=== PATIENT | male | born 1990 | race African-American/Black ===

== ENCOUNTER 2019-12-19 11:51 | Inpatient (IN) | payer OTHER ==
--- NOTE | 2019-12-19 12:01 | BHS.RME ---
Substance Use & Tx History - Substance Use History Alcohol Substance amount: 1 liter vodka Frequency of use: Daily Substance route: Oral Date of Last Use: 12/18/19 Methamphetamine Substance amount: 1 bag Frequency of use: Less than 3 times per week Date of Last Use: 12/18/19 Cocaine- Powder Substance amount: 5 bags Frequency of use: Daily Substance route: Inhalation (ex: sniffing or snorting) Date of Last Use: 12/18/19 Heroin Substance amount: more than 12 bags Frequency of use: Daily Substance route: Inhalation (ex: sniffing or snorting), Injection (ex: intravenous or skin popping) Date of Last Use: 12/18/19 Physical/Psych/Mental Status - Behavior General Behavior: Increased activity (restlessness, agitation) Eye Contact: Normal - Cooperativeness Cooperativeness: Cooperative - Thinking Thought Processes: Tight, Logical, Goal Directed - Physical Health Problems Is patient presently having any pain?: No Does patient presently have any injuries (include location): No Does patient currently have a fever: No Is patient : No COWS - Scale Resting Pulse: 0= [place] 80 or Below Sweatin= Chills/Flushing Restless Observation: 0= Sits Still Pupil Size: 0= Normal to Room Light Bone or Joint Aches: 2= Severe Diffuse Aches Runny Nose/ Eye Tearin= Nasal Congestion GI Upset > 30mins: 1= Stomach Cramp Tremor Observation: 1= Tremor [place], Not Seen Yawning Observation: 0= None Anxiety or Irritability: 1=Feels Anxious/Irritable Goose Flesh Skin: 3=Piloerection COWS Score: 10 CIWA Nausea/Vomitin-Int. Nausea w/Dry Heave Muscle Tremors: 4-Moderate,w/Arms Extend Anxiety: 3 Agitation: 3 Paroxysmal Sweats: 2 Orientation: 1-Uncertain about Date Tacttile Disturbances: 0-None Auditory Disturbances: 0-None Visual Disturbances: 0-None Headache: 0-None Present CIWA-Ar Total Score: 17
--- NOTE | 2019-12-19 12:38 | HP ---
COWS - Scale Resting Pulse: 0= [place] 80 or Below Sweatin= Chills/Flushing Restless Observation: 0= Sits Still Pupil Size: 0= Normal to Room Light Bone or Joint Aches: 2= Severe Diffuse Aches Runny Nose/ Eye Tearin= Nasal Congestion GI Upset > 30mins: 1= Stomach Cramp Tremor Observation: 1= Tremor [place], Not Seen Yawning Observation: 0= None Anxiety or Irritability: 1=Feels Anxious/Irritable Goose Flesh Skin: 3=Piloerection COWS Score: 10 CIWA Score Nausea/Vomitin-Int. Nausea w/Dry Heave Muscle Tremors: 4-Moderate,w/Arms Extend Anxiety: 3 Agitation: 3 Paroxysmal Sweats: 2 Orientation: 1-Uncertain about Date Tacttile Disturbances: 0-None Auditory Disturbances: 0-None Visual Disturbances: 0-None Headache: 0-None Present CIWA-Ar Total Score: 17 - Admission Criteria OASAS Guidelines: Admission for Medically Managed Detox: Requires at least one of the followin. CIWA greater than 12 2. Seizures within the past 24 hours 3. Delirium tremens within the past 24 hours 4. Hallucinations within the past 24 hours 5. Acute intervention needed for co occurring medical disorder 6. Acute intervention needed for co occurring psychiatric disorder 7. Severe withdrawal that cannot be handled at a lower level of care (continued vomiting, continued diarrhea, abnormal vital signs) requiring intravenous medication and/or fluids 8. Admitting History and Physical - Admission Chief Complaint: Mr. Quinonez is a 29 yo man who presents to [facility] stating "I need help". History of Present Illness: Mr. Quinonez is a 29 yo man who presents to [facility] stating "I need help". He was at [facility] yesterday for alcohol and opioid intoxication, he left without being treated other than IV fluids. PMH: Psych: legal: none PSH: right arm abscess SOC: homeless. streets - Substance Use History Alcohol Substance amount: 1 liter vodka Frequency of use: Daily Substance route: Oral Date of Last Use: 12/18/19 Began age 15 y No seiuze. Has had a blackout. Admits to an eye agriculture instructor Methamphetamine Substance amount: 1 bag Frequency of use: Less than 3 times per week Date of Last Use: 12/18/19 First use age 28 y Cocaine- Powder Substance amount: 5 bags Frequency of use: Daily Substance route: Inhalation (ex: sniffing or snorting) Date of Last Use: 12/18/19 First use age 21 y Heroin Substance amount: more than 12 bags Frequency of use: Daily Substance route: Inhalation (ex: sniffing or snorting), Injection (ex: intravenous or skin popping) Date of Last Use: 12/18/19 First use age 21 y Yes OD, >20 times. Last OD was last week. No Narcan at home No Methadone or Suboxone Patient Name: Rj Quinonez Date: 1990 Address: [address] [place] [id number] Sex: Male Rx Written Rx Dispensed Drug Quantity Days Supply Prescriber Name Payment Method Dispenser 09/04/2019 09/05/2019 chlordiazepoxide 25 mg capsule 8 2 Papi Batista [facility] 05/31/2019 06/01/2019 chlordiazepoxide 25 mg capsule 8 2 Papi Batista Medicaid [facility] History Source: Patient Limitations to Obtaining History: No Limitations Admission ROS [facility] Allergies/Adverse Reactions: Allergies Allergy/AdvReac Type Severity Reaction Status Date / Time No Known Allergies Allergy Verified 12/19/19 12:42 Exam Limitations: No Limitations - Ebola screening Have you traveled outside of the country in the last 21 days: No Have you been sick,other than usual withdrawal symptoms: No Do you have a fever: No - Review of Systems Constitutional: No Symptoms Reported EENT: reports: Nose Congestion Respiratory: reports: No Symptoms reported Cardiac: reports: No Symptoms Reported GI: reports: No Symptoms Reported : reports: Other (hesitancy) Musculoskeletal: reports: Back Pain, Muscle Pain Integumentary: reports: No Symptoms Reported Neuro: reports: No Symptoms reported Endocrine: reports: No Symptoms Reported Hematology: reports: Anemia Psychiatric: reports: Anxious Patient History - Smoking Cessation Smoking history: Current every day smoker Have you smoked in the past 12 months: Yes Aproximately how many cigarettes per day: 10 Hx Chewing Tobacco Use: No Initiated information on smoking cessation: Yes 'Breaking Loose' booklet given: 12/19/19 Admission Physical Exam [facility] - Physical General Appearance: Yes: No Apparent Distress, Nourished, Other (sleepy) HEENTM: Yes: EOMI, Hearing grossly Normal, Normocephalic, Normal Voice Respiratory: Yes: Lungs Clear, Normal Breath Sounds Neck: Yes: Within Normal Limits, Supple Breast: Yes: Breast Exam Deferred Cardiology: Yes: Regular Rhythm, Regular Rate Abdominal: Yes: Normal Bowel Sounds, Non Tender, Flat, Soft Genitourinary: Yes: Other (deferred) Back: Yes: Normal Inspection Musculoskeletal: Yes: Gait Steady Extremities: Yes: Normal Inspection, Non-Tender Neurological: Yes: Alert, Normal Response Integumentary: Yes: Track Knapp (no sign of infection) - Diagnostic (1) Alcohol dependence with withdrawal, uncomplicated Current Visit: Yes Status: Acute (2) Opioid withdrawal Current Visit: Yes Status: Acute (3) Cocaine dependence Current Visit: Yes Status: Acute (4) Nicotine dependence Current Visit: Yes Status: Acute (5) Methamphetamine abuse Current Visit: Yes Status: Acute (6) Homeless Current Visit: Yes Status: Acute Cleared for Admission [facility] - Detox or Rehab [facility] Level of Care: Medically Managed Detox Regimen/Protocol: Methadone/Librium Inpatient Rehab Admission - Rehab Decision to Admit Inpatient rehab admission?: No
[2019-12-19] MEDS ORDERED: MAGNESIUM HYDROX 2400MG/30ML ORAL SUSPENSION 30 ML CUP PO PRN (12:42)
[2019-12-19] MEDS ORDERED: cloNIDine HCL 0.1 MG TABLET PO PRN (12:42)
[2019-12-19] MEDS ORDERED: IBUPROFEN 400 MG TABLET (FP) PO PRN (12:42)
[2019-12-19] MEDS ORDERED: BISMUTH SUBSALICYLATE 524 MG/30 ML UD PO PRN (12:42)
[2019-12-19] MEDS ORDERED: MENTHOL/PHENOL 1 EACH UD MM PRN (12:42)
[2019-12-19] MEDS ORDERED: ACETAMINOPHEN 325 MG TABLET (FP) PO PRN ×2 (12:42)
[2019-12-19] MEDS ORDERED: MAGNESIUM CITRATE 300 ML BOTTLE PO PRN (12:42)
[2019-12-19] MEDS ORDERED: chlordiazePOXIDE HCL 25 MG CAPSULE PO PRN (12:42)
[2019-12-19] MEDS ORDERED: NICOTINE POLACRILEX 2 MG GUM BUC PRN (12:42)
[2019-12-19] MEDS ORDERED: METHOCARBAMOL 500 MG TABLET PO PRN (12:42)
[2019-12-19] MEDS ORDERED: ONDANSETRON *ODT* 4 MG TABLET SL PRN (12:42)
[2019-12-19] MEDS ORDERED: MAG HYDROX/AL HYDROX/SIMETH 30 ML UNIT-DOSE CUP PO PRN (12:42)
[2019-12-19] MEDS ORDERED: METHADONE HCL 10 MG TABLET (FOR DETOX USE ONLY) PO ONE (12:42)
[2019-12-19 13:31] VITALS: BMI 32.3
--- NOTE | 2019-12-19 14:39 | EKG ---
Test Reason : Blood Pressure : / mmHG Vent. Rate : 059 BPM Atrial Rate : 059 BPM P-R Int : 120 ms QRS Dur : 104 ms QT Int : 410 ms P-R-T Axes : 047 -57 008 degrees QTc Int : 405 ms SINUS BRADYCARDIA LEFT ANTERIOR FASCICULAR BLOCK ABNORMAL ECG NO PREVIOUS ECGS AVAILABLE Confirmed by MD Keith, Mayo ([id number]) on 12/19/2019 2:39:25 PM Referred By: Confirmed By:Mayo Parker MD
[2019-12-19] MEDS: PRENATAL VITAMINS W/ FOLIC ACID TABLET (FP) PO SCH (15:00)
[2019-12-19] MEDS: NICOTINE 14 MG/24 HOURS TOPICAL PATCH TD SCH (15:00)
[2019-12-19] MEDS: hydrOXYzine PAMOATE 25 MG CAPSULE (FP) PO SCH ×3 (15:01→22:24)
[2019-12-19 16:54] LABS: HEMATOCRIT 35.5 % (35.4-49); HEMOGLOBIN 11.8 GM/dL (11.7-16.9); MCH 30.7 pg (25.7-33.7); MCHC 33.2 g/dl (32.0-35.9); MEAN CELL VOLUME 92.4 fl (80-96); MEAN PLT VOLUME 8.1 fl (7.5-11.1); PLATELET COUNT 260 K/MM3 (134-434); RBC 3.85 M/mm3 (4.00-5.60); RDW 14.5 % (11.9-15.9); WHITE BLOOD COUNT 7.2 K/mm3 (4.0-10.0)
[2019-12-19 17:12] LABS: ALBUMIN 3.4 g/dl (3.4-5.0); BILIRUBIN,TOTAL 0.4 mg/dL (0.2-1); BLOOD UREA NITROGEN 10.8 mg/dL (7-18); CALCIUM 8.8 mg/dL (8.5-10.1); CREATININE 1.1 mg/dL (0.55-1.3); POTASSIUM 4.1 mmol/L (3.5-5.1)
[2019-12-19] MEDS: chlordiazePOXIDE HCL 25 MG CAPSULE PO SCH ×2 (18:00→22:03)
[2019-12-19] MEDS: THIAMINE HCL 100 MG TABLET (FP) PO SCH (22:03)
[2019-12-19] MEDS: MELATONIN 5 MG TABLETS PO SCH (22:03)
[2019-12-20] MEDS: chlordiazePOXIDE HCL 25 MG CAPSULE PO SCH ×4 (06:10→21:59)
[2019-12-20] MEDS: hydrOXYzine PAMOATE 25 MG CAPSULE (FP) PO SCH (06:10)
[2019-12-20] MEDS ORDERED: METHADONE HCL 5 MG TABLET (FOR DETOX USE ONLY) ONE (09:19)
[2019-12-20] MEDS ORDERED: METHADONE HCL 10 MG TABLET (FOR DETOX USE ONLY) ONE (09:19)
[2019-12-20] MEDS ORDERED: hydrOXYzine PAMOATE 25 MG CAPSULE (FP) PO PRN (09:37)
[2019-12-20] MEDS ORDERED: METHADONE (DETOX) 20 MG, METHADONE (DETOX) 5 MG PO ONE (10:00)
--- NOTE | 2019-12-20 11:03 | PN ---
[facility] CIWA - CIWA Score Nausea/Vomitin-No Nausea/No Vomiting Muscle Tremors: 2 Anxiety: 2 Agitation: 2 Paroxysmal Sweats: 2 Orientation: 0-Oriented Tacttile Disturbances: 0-None Auditory Disturbances: 0-None Visual Disturbances: 0-None Headache: 0-None Present CIWA-Ar Total Score: 8 [facility] COWS - Scale Resting Pulse: 0= [place] 80 or Below Sweatin= Chills/Flushing Restless Observation: 1= Difficult to Sit Still Pupil Size: 0= Normal to Room Light Bone or Joint Aches: 2= Severe Diffuse Aches Runny Nose/ Eye Tearin= Nasal Congestion GI Upset > 30mins: 0= None Tremor Observation of Outstretched Hands: 1= Tremor [place], Not Seen Yawning Observation: 1= 1-2x During Session Anxiety or Irritability: 2=Irritable/Anxious Goose Flesh Skin: 0=Smooth Skin COWS Score: 9 S Progress Note (SOAP) Subjective: sweats irritable agitation body aches interrupted sleep tired Objective: 12/20/19 11:02 Vital Signs Temperature 98.2 F 12/20/19 05:25 Pulse Rate 51 L 12/20/19 05:25 Respiratory Rate 18 12/20/19 05:25 Blood Pressure 103/55 L 12/20/19 05:25 O2 Sat by Pulse Oximetry (%) 99 12/20/19 05:25 Laboratory Tests 12/19/19 12/19/19 12/19/19 13:10 13:10 13:10 WBC 7.2 RBC 3.85 L Hgb 11.8 Hct 35.5 MCV 92.4 MCH 30.7 MCHC 33.2 RDW 14.5 Plt Count 260 MPV 8.1 Sodium 139 Potassium 4.1 Chloride 104 Carbon Dioxide 32 Anion Gap 4 L BUN 10.8 Creatinine 1.1 Est GFR (CKD-EPI)AfAm 104.59 Est GFR (CKD-EPI)NonAf 90.24 Random Glucose 76 Calcium 8.8 Total Bilirubin 0.4 AST 13 L ALT 20 Alkaline Phosphatase 65 Total Protein 7.0 Albumin 3.4 Syphilis Serology Non-reactive HIV Ag/Ab Combo Qual 12/19/19 13:50 WBC RBC Hgb Hct MCV MCH MCHC RDW Plt Count MPV Sodium Potassium Chloride Carbon Dioxide Anion Gap BUN Creatinine Est GFR (CKD-EPI)AfAm Est GFR (CKD-EPI)NonAf Random Glucose Calcium Total Bilirubin AST ALT Alkaline Phosphatase Total Protein Albumin Syphilis Serology HIV Ag/Ab Combo Qual Negative labs noted aaox3 lying in bed no acute distress Assessment: 12/20/19 11:02 withdrawals sx Plan: continue detox increase fluids
[2019-12-20] MEDS: PRENATAL VITAMINS W/ FOLIC ACID TABLET (FP) PO SCH (11:16)
[2019-12-20] MEDS: NICOTINE 14 MG/24 HOURS TOPICAL PATCH TD SCH (11:20)
[2019-12-20] MEDS: THIAMINE HCL 100 MG TABLET (FP) PO SCH (21:59)
[2019-12-20] MEDS: MELATONIN 5 MG TABLETS PO SCH (22:01)
[2019-12-21] MEDS: chlordiazePOXIDE HCL 25 MG CAPSULE PO SCH ×4 (05:35→22:03)
--- NOTE | 2019-12-21 09:51 | PN ---
S CIWA - CIWA Score Nausea/Vomitin-No Nausea/No Vomiting Muscle Tremors: 2 Anxiety: 2 Agitation: 2 Paroxysmal Sweats: 1-Minimal Palms Moist Orientation: 0-Oriented Tacttile Disturbances: 0-None Auditory Disturbances: 0-None Visual Disturbances: 0-None Headache: 0-None Present CIWA-Ar Total Score: 7 [facility] COWS - Scale Resting Pulse: 0= [place] 80 or Below Sweatin= Chills/Flushing Restless Observation: 1= Difficult to Sit Still Pupil Size: 0= Normal to Room Light Bone or Joint Aches: 2= Severe Diffuse Aches Runny Nose/ Eye Tearin= None GI Upset > 30mins: 0= None Tremor Observation of Outstretched Hands: 1= Tremor [place], Not Seen Yawning Observation: 1= 1-2x During Session Anxiety or Irritability: 2=Irritable/Anxious Goose Flesh Skin: 0=Smooth Skin COWS Score: 8 S Progress Note (SOAP) Subjective: sweats shakes agitation interrupted sleep body aches Objective: 12/21/19 09:50 Vital Signs Temperature 97.7 F 12/21/19 05:27 Pulse Rate 64 12/21/19 05:27 Respiratory Rate 16 12/21/19 05:27 Blood Pressure 105/66 12/21/19 05:27 O2 Sat by Pulse Oximetry (%) 99 12/21/19 05:27 Laboratory Tests 12/19/19 12/19/19 12/19/19 13:10 13:10 13:10 WBC 7.2 RBC 3.85 L Hgb 11.8 Hct 35.5 MCV 92.4 MCH 30.7 MCHC 33.2 RDW 14.5 Plt Count 260 MPV 8.1 Sodium 139 Potassium 4.1 Chloride 104 Carbon Dioxide 32 Anion Gap 4 L BUN 10.8 Creatinine 1.1 Est GFR (CKD-EPI)AfAm 104.59 Est GFR (CKD-EPI)NonAf 90.24 Random Glucose 76 Calcium 8.8 Total Bilirubin 0.4 AST 13 L ALT 20 Alkaline Phosphatase 65 Total Protein 7.0 Albumin 3.4 Syphilis Serology Non-reactive COVID-19 (KARIE) HIV Ag/Ab Combo Qual 12/19/19 12/19/19 13:50 13:50 WBC RBC Hgb Hct MCV MCH MCHC RDW Plt Count MPV Sodium Potassium Chloride Carbon Dioxide Anion Gap BUN Creatinine Est GFR (CKD-EPI)AfAm Est GFR (CKD-EPI)NonAf Random Glucose Calcium Total Bilirubin AST ALT Alkaline Phosphatase Total Protein Albumin Syphilis Serology COVID-19 (KARIE) Not detected HIV Ag/Ab Combo Qual Negative labs noted aaox3 ambulating no acute distress Assessment: 12/21/19 09:51 withdrawals Plan: continue detox increase fluids
[2019-12-21] MEDS ORDERED: METHADONE HCL 10 MG TABLET (FOR DETOX USE ONLY) PO ONE (10:00)
[2019-12-21] MEDS: NICOTINE 14 MG/24 HOURS TOPICAL PATCH TD SCH (10:26)
[2019-12-21] MEDS: PRENATAL VITAMINS W/ FOLIC ACID TABLET (FP) PO SCH (10:26)
[2019-12-21] MEDS: MELATONIN 5 MG TABLETS PO SCH (22:03)
[2019-12-21] MEDS: THIAMINE HCL 100 MG TABLET (FP) PO SCH (22:03)
[2019-12-22] MEDS ORDERED: chlordiazePOXIDE HCL 10 MG CAPSULE PO PRN
[2019-12-22] MEDS: chlordiazePOXIDE HCL 10 MG CAPSULE PO SCH ×4 (05:30→22:24)
--- NOTE | 2019-12-22 07:37 | PN ---
S Progress Note Note: R UPPER ARM SURGICAL WOUND 2/2 TO INFECTED ABCESS 2 MONTHS AGO. R UPPER ARM NOTED WITH APPROX 15 CM X 3CM LINEAR WOUND WITH PINK GRANULATING TISSUE. DRIED/ CRUSTED SANGUINOUS DC NOTED TO BORDERS. NO S/SX OF INFECTION NOTED. A- R ARM SURGICAL WOUND P- BACITRACIN DAILY AFTER NS WASH AND COVER WITH CLEAN DRY DRESSING.
[2019-12-22] MEDS ORDERED: METHADONE HCL 5 MG TABLET (FOR DETOX USE ONLY) ONE (08:35)
[2019-12-22] MEDS ORDERED: METHADONE HCL 10 MG TABLET (FOR DETOX USE ONLY) ONE (08:35)
[2019-12-22] MEDS ORDERED: BACITRACIN 15 GM TUBE TOPICAL OINTMENT TP SCH (10:00)
[2019-12-22] MEDS ORDERED: METHADONE (DETOX) 10 MG, METHADONE (DETOX) 5 MG PO ONE (10:00)
[2019-12-22] MEDS: NICOTINE 14 MG/24 HOURS TOPICAL PATCH TD SCH (10:31)
[2019-12-22] MEDS: PRENATAL VITAMINS W/ FOLIC ACID TABLET (FP) PO SCH (10:31)
[2019-12-22] MEDS: BACITRACIN 0.9 GM PACKET TP SCH (11:28)
--- NOTE | 2019-12-22 13:40 | PN ---
[facility] CIWA - CIWA Score Nausea/Vomitin-No Nausea/No Vomiting Muscle Tremors: 2 Anxiety: 2 Agitation: 1-Slight > Activity Paroxysmal Sweats: 2 Orientation: 0-Oriented Tacttile Disturbances: 0-None Auditory Disturbances: 0-None Visual Disturbances: 0-None Headache: 0-None Present CIWA-Ar Total Score: 7 [facility] Progress Note (SOAP) Subjective: Complaints of sweats, anxiety, tremors and light sensitivity. Objective: 12/22/19 13:38 Vital Signs 12/22/19 12/22/19 08:40 12:39 Temperature 97.3 F L 97.8 F Pulse Rate 55 L 71 Respiratory 17 18 Rate Blood Pressure 111/55 L 131/52 L O2 Sat by Pulse 99 Oximetry (%) Laboratory Last Values WBC 7.2 K/mm3 (4.0-10.0) 12/19/19 13:10 RBC 3.85 M/mm3 (4.00-5.60) L 12/19/19 13:10 Hgb 11.8 GM/dL (11.7-16.9) 12/19/19 13:10 Hct 35.5 % (35.4-49) 12/19/19 13:10 MCV 92.4 fl (80-96) 12/19/19 13:10 MCH 30.7 pg (25.7-33.7) 12/19/19 13:10 MCHC 33.2 g/dl (32.0-35.9) 12/19/19 13:10 RDW 14.5 % (11.9-15.9) 12/19/19 13:10 Plt Count 260 K/MM3 (134-434) 12/19/19 13:10 MPV 8.1 fl (7.5-11.1) 12/19/19 13:10 Sodium 139 mmol/L (136-145) 12/19/19 13:10 Potassium 4.1 mmol/L (3.5-5.1) 12/19/19 13:10 Chloride 104 mmol/L (98-107) 12/19/19 13:10 Carbon Dioxide 32 mmol/L (21-32) 12/19/19 13:10 Anion Gap 4 MMOL/L (8-16) L 12/19/19 13:10 BUN 10.8 mg/dL (7-18) 12/19/19 13:10 Creatinine 1.1 mg/dL (0.55-1.3) 12/19/19 13:10 Est GFR (CKD-EPI)AfAm 104.59 12/19/19 13:10 Est GFR (CKD-EPI)NonAf 90.24 12/19/19 13:10 Random Glucose 76 mg/dL (74-106) 12/19/19 13:10 Calcium 8.8 mg/dL (8.5-10.1) 12/19/19 13:10 Total Bilirubin 0.4 mg/dL (0.2-1) 12/19/19 13:10 AST 13 U/L (15-37) L 12/19/19 13:10 ALT 20 U/L (13-61) 12/19/19 13:10 Alkaline Phosphatase 65 U/L (45-117) 12/19/19 13:10 Total Protein 7.0 g/dl (6.4-8.2) 12/19/19 13:10 Albumin 3.4 g/dl (3.4-5.0) 12/19/19 13:10 Syphilis Serology Non-reactive (NONREACTIVE) 12/19/19 13:10 COVID-19 (KARIE) Not detected (Not Detected) 12/19/19 13:50 HIV Ag/Ab Combo Qual Negative (NEGATIVE) 12/19/19 13:50 Labs noted. Assessment: 12/22/19 13:39 Alert and oriented x3, in no acute respiratory distress. Full ROM, ambulatory on unit. Withdrawal symptoms. Plan: Continue detox protocol.
[2019-12-22] MEDS ORDERED: MASKS NR ONE (21:58)
[2019-12-22] MEDS: MELATONIN 5 MG TABLETS PO SCH (22:24)
[2019-12-22] MEDS: THIAMINE HCL 100 MG TABLET (FP) PO SCH (22:24)
[2019-12-23] MEDS: chlordiazePOXIDE HCL 10 MG CAPSULE PO SCH ×2 (05:35→17:57)
[2019-12-23] MEDS ORDERED: METHADONE HCL 10 MG TABLET (FOR DETOX USE ONLY) PO ONE (10:00)
[2019-12-23] MEDS: NICOTINE 14 MG/24 HOURS TOPICAL PATCH TD SCH (10:18)
[2019-12-23] MEDS: PRENATAL VITAMINS W/ FOLIC ACID TABLET (FP) PO SCH (10:18)
[2019-12-23] MEDS: BACITRACIN 0.9 GM PACKET TP SCH (11:11)
--- NOTE | 2019-12-23 15:39 | PN ---
[facility] CIWA - CIWA Score Nausea/Vomitin-No Nausea/No Vomiting Muscle Tremors: None Anxiety: 2 Agitation: 2 Paroxysmal Sweats: No Perspiration Orientation: 0-Oriented Tacttile Disturbances: 0-None Auditory Disturbances: 0-None Visual Disturbances: 0-None Headache: 0-None Present CIWA-Ar Total Score: 4 [facility] COWS - Scale Resting Pulse: 0= [place] 80 or Below Sweatin= No chills or Flushing Restless Observation: 0= Sits Still Pupil Size: 0= Normal to Room Light Bone or Joint Aches: 0= None Runny Nose/ Eye Tearin= None GI Upset > 30mins: 0= None Tremor Observation of Outstretched Hands: 0= None Yawning Observation: 0= None Anxiety or Irritability: 1=Feels Anxious/Irritable Goose Flesh Skin: 0=Smooth Skin COWS Score: 1 [facility] Progress Note (SOAP) Subjective: Feels weak, can't think straight, feels confused since admission. Patient seen taking his meds at nursing station in [facility], ambulating without any difficulties and speaking with staff appropriately. Objective: 12/23/19 15:38 Last Vital Signs Temp Pulse Resp BP Pulse Ox 98.0 F 65 19 123/60 99 12/23/19 12:42 12/23/19 12:42 12/23/19 12:42 12/23/19 12:42 12/23/19 12:42 Laboratory Tests 12/19/19 12/19/19 12/19/19 13:10 13:10 13:10 WBC 7.2 RBC 3.85 L Hgb 11.8 Hct 35.5 MCV 92.4 MCH 30.7 MCHC 33.2 RDW 14.5 Plt Count 260 MPV 8.1 Sodium 139 Potassium 4.1 Chloride 104 Carbon Dioxide 32 Anion Gap 4 L BUN 10.8 Creatinine 1.1 Est GFR (CKD-EPI)AfAm 104.59 Est GFR (CKD-EPI)NonAf 90.24 Random Glucose 76 Calcium 8.8 Total Bilirubin 0.4 AST 13 L ALT 20 Alkaline Phosphatase 65 Total Protein 7.0 Albumin 3.4 Syphilis Serology Non-reactive COVID-19 (KARIE) HIV Ag/Ab Combo Qual 12/19/19 12/19/19 13:50 13:50 WBC RBC Hgb Hct MCV MCH MCHC RDW Plt Count MPV Sodium Potassium Chloride Carbon Dioxide Anion Gap BUN Creatinine Est GFR (CKD-EPI)AfAm Est GFR (CKD-EPI)NonAf Random Glucose Calcium Total Bilirubin AST ALT Alkaline Phosphatase Total Protein Albumin Syphilis Serology COVID-19 (KARIE) Not detected HIV Ag/Ab Combo Qual Negative Labs reviewed Assessment: 12/23/19 15:38 Withdrawal sxs Plan: Continue detox Encouraged PO water intake Patient scheduled for discharge tomorrow
[2019-12-23] MEDS: THIAMINE HCL 100 MG TABLET (FP) PO SCH (22:16)
[2019-12-23] MEDS: MELATONIN 5 MG TABLETS PO SCH (22:17)
[2019-12-24] MEDS ORDERED: chlordiazePOXIDE HCL 10 MG CAPSULE PO ONE (05:00)
[2019-12-24 05:51] VITALS: BP 93/47; PULSE 63; TEMP 97.8
[2019-12-24] MEDS ORDERED: METHADONE HCL 5 MG TABLET (FOR DETOX USE ONLY) PO ONE (06:00)
--- NOTE | 2019-12-24 08:45 | DS ---
[facility] Detox Discharge Summary Admission Date: 12/19/19 Discharge Date: 12/24/19 - History Present History: Alcohol Dependence, Cocaine Dependence, Opioid Dependence - Physical Exam Results Vital Signs: Vital Signs Temperature 97.8 F 12/24/19 05:50 Pulse Rate 63 12/24/19 05:50 Respiratory Rate 18 12/24/19 05:50 Blood Pressure 93/47 L 12/24/19 05:50 O2 Sat by Pulse Oximetry (%) 100 12/24/19 05:50 Pertinent Admission Physical Exam Findings: Vital Signs Temperature 97.8 F 12/24/19 05:50 Pulse Rate 63 12/24/19 05:50 Respiratory Rate 18 12/24/19 05:50 Blood Pressure 93/47 L 12/24/19 05:50 O2 Sat by Pulse Oximetry (%) 100 12/24/19 05:50 Laboratory Tests 12/19/19 12/19/19 12/19/19 13:10 13:10 13:10 WBC 7.2 RBC 3.85 L Hgb 11.8 Hct 35.5 MCV 92.4 MCH 30.7 MCHC 33.2 RDW 14.5 Plt Count 260 MPV 8.1 Sodium 139 Potassium 4.1 Chloride 104 Carbon Dioxide 32 Anion Gap 4 L BUN 10.8 Creatinine 1.1 Est GFR (CKD-EPI)AfAm 104.59 Est GFR (CKD-EPI)NonAf 90.24 Random Glucose 76 Calcium 8.8 Total Bilirubin 0.4 AST 13 L ALT 20 Alkaline Phosphatase 65 Total Protein 7.0 Albumin 3.4 Syphilis Serology Non-reactive COVID-19 (KARIE) HIV Ag/Ab Combo Qual 12/19/19 12/19/19 13:50 13:50 WBC RBC Hgb Hct MCV MCH MCHC RDW Plt Count MPV Sodium Potassium Chloride Carbon Dioxide Anion Gap BUN Creatinine Est GFR (CKD-EPI)AfAm Est GFR (CKD-EPI)NonAf Random Glucose Calcium Total Bilirubin AST ALT Alkaline Phosphatase Total Protein Albumin Syphilis Serology COVID-19 (KARIE) Not detected HIV Ag/Ab Combo Qual Negative labs noted aaox3 ambulating no acute distress lungs CTA - Treatment Hospital Course: Detox Protocol Followed, Detoxed Safely, Responded well, Discharged Condition Good, Rehab Referral Accepted - Medication Discharge Medications: Ambulatory Orders NK [No Known Home Medication] 12/19/19 - Diagnosis (1) Alcohol dependence with withdrawal, uncomplicated Current Visit: Yes Status: Chronic (2) Cocaine dependence Current Visit: Yes Status: Chronic Qualifiers: Substance use status: uncomplicated Qualified Code(s): F14.20 - Cocaine dependence, uncomplicated (3) Homeless Current Visit: Yes Status: Acute (4) Methamphetamine abuse Current Visit: Yes Status: Acute (5) Nicotine dependence Current Visit: Yes Status: Chronic Qualifiers: Nicotine product type: cigarettes Substance use status: uncomplicated Qualified Code(s): F17.210 - Nicotine dependence, cigarettes, uncomplicated (6) Opioid withdrawal Current Visit: Yes Status: Chronic - AMA Did Patient Leave Against Medical Advice: No
[2019-12-24] MEDS: BACITRACIN 0.9 GM PACKET TP SCH (10:45)
[2019-12-24] MEDS: PRENATAL VITAMINS W/ FOLIC ACID TABLET (FP) PO SCH (10:45)
[2019-12-24] MEDS: NICOTINE 14 MG/24 HOURS TOPICAL PATCH TD SCH (10:45)
== END 2019-12-24 14:06 | disposition other institution (70) | DRG 773 ==
LOC: YASAS 11:51 → Y6N 13:57
PROVIDERS: ADMIT Allergy & Immunology; ATTEND Allergy & Immunology
DX: F10.230 Alcohol dependence with withdrawal, uncomplicated (principal); F11.23 Opioid dependence with withdrawal; F14.20 Cocaine dependence, uncomplicated; F15.10 Other stimulant abuse, uncomplicated; F17.210 Nicotine dependence, cigarettes, uncomplicated; Z48.817 Encounter for surgical aftercare following surgery on the skin and subcutaneous tissue
CPT/HCPCS: 36415; 80053; 85027; 86780; 87389; 93005; 93010; U0003

== ENCOUNTER 2019-12-24 13:45 | Inpatient (IN) | payer OTHER ==
--- NOTE | 2019-12-24 14:46 | HP ---
[facility] Rehab Assess/Revision - Admission History Admitted to Rehab from: [facility] Date of Admission to Rehab: 12/24/19 - Findings Detox History & Physical reviewed: Yes Concur with findings: Yes Inpatient Rehab Admission - Rehab Decision to Admit Inpatient rehab admission?: Yes - Initial Determination Are CD services needed?: Yes Free of communicable disease: Yes Not in need of hospitalization: Yes - Rehab Admission Criteria Previous failed treatment: Yes Poor recovery environment: Yes Comorbidities: Yes Lacks judgement: Yes Patient is meeting Inpatient Rehab admission criteria:: Yes
[2019-12-24] MEDS ORDERED: MAGNESIUM HYDROX 2400MG/30ML ORAL SUSPENSION 30 ML CUP PO PRN (14:47)
[2019-12-24] MEDS ORDERED: MENTHOL/PHENOL 1 EACH UD MM PRN (14:47)
[2019-12-24] MEDS ORDERED: P-EPHED 60MG/TRIPROLIDI 2.5MG TABLET PO PRN (14:47)
[2019-12-24] MEDS ORDERED: MAGNESIUM CITRATE 300 ML BOTTLE PO PRN (14:47)
[2019-12-24] MEDS ORDERED: ACETAMINOPHEN 325 MG TABLET (FP) PO PRN (14:47)
[2019-12-24] MEDS ORDERED: IBUPROFEN 400 MG TABLET (FP) PO PRN (14:47)
[2019-12-24] MEDS ORDERED: LOPERAMIDE HCL 2 MG CAPSULE PO PRN (14:47)
[2019-12-24] MEDS ORDERED: guaiFENesin 200 MG/10 ML 10 ML UNIT-DOSE CUPS PO PRN (14:47)
[2019-12-24] MEDS: BACITRACIN 0.9 GM PACKET TP SCH (15:45)
[2019-12-24] MEDS: MELATONIN 5 MG TABLETS PO SCH (22:15)
[2019-12-24] MEDS: THIAMINE HCL 100 MG TABLET (FP) PO SCH (22:15)
[2019-12-25] MEDS: MAG HYDROX/AL HYDROX/SIMETH 30 ML UNIT-DOSE CUP PO PRN ×2 (01:13→10:24)
[2019-12-25] MEDS: BACITRACIN 0.9 GM PACKET TP SCH (10:04)
[2019-12-25] MEDS: PRENATAL VITAMINS W/ FOLIC ACID TABLET (FP) PO SCH (10:04)
[2019-12-25] MEDS: NICOTINE 7 MG/24 HOURS TOPICAL PATCH TD SCH (10:04)
--- NOTE | 2019-12-25 14:16 | PN ---
[facility] Progress Note (SOAP) Subjective: patient with surgical scare on right forearm, inner aspect. Reports it was infected from drug use and needed to be debrieded. Objective: 12/25/19 14:13 Vital Signs Period Temp Pulse Resp BP Sys/Berkowitz Pulse Ox Last 24 Hr 97.7 F 73 18 103/62 98-99 General: No apparent distress HEENTM: normocephalic Neck: supple Extremities: upper right arm, inner aspect- surgical scar, approximately six intches in lenght from anticubital area diagonal to axillae. Wound edges well healed with scar tissue, reddened, but no s/s of infection noted. Raised nodule by antecubital, lateral aspect. Assessment: Healing surgical scar 12/25/19 14:17 Plan: Continue with bacitracin, cover with clean, dry dressing.
[2019-12-25] MEDS: hydrOXYzine PAMOATE 25 MG CAPSULE (FP) PO PRN (17:37)
[2019-12-25] MEDS: NICOTINE POLACRILEX 2 MG GUM BUC PRN (17:39)
[2019-12-25] MEDS: MELATONIN 5 MG TABLETS PO SCH (22:45)
[2019-12-25] MEDS: THIAMINE HCL 100 MG TABLET (FP) PO SCH (22:45)
[2019-12-26] MEDS: PRENATAL VITAMINS W/ FOLIC ACID TABLET (FP) PO SCH (10:10)
[2019-12-26] MEDS: BACITRACIN 0.9 GM PACKET TP SCH ×2 (10:10→10:19)
[2019-12-26] MEDS: NICOTINE 7 MG/24 HOURS TOPICAL PATCH TD SCH (10:10)
--- NOTE | 2019-12-26 13:19 | PN ---
S Progress Note Note: Patient seen yesterday because of healing surgical scar on arm. Today he is refusing dressing changes.
--- NOTE | 2019-12-26 15:31 | PN ---
S Progress Note Note: Patient refusing all care from the staff. As noted, refused vital signs, dressing changes. Does not want to get out of bed. Patient admitted to me that he was depressed. When asked if he would like to see the psychiatric service, he stated "what are they going to do? just ask me a bunch of question?" patient was advised that psychiatric service may be able to evaluate him and make a recommendation. Order placed for psychiatric consult. Vital Signs Period Temp Pulse Resp BP Sys/Berkowitz Pulse Ox Last 24 Hr 95-97
--- NOTE | 2019-12-26 17:21 | PN ---
[facility] Progress Note Note: Psychiatry Attending's note : Flower Grower came to evaluate this patient. As requested by medical HOUSE MOVER HELPER Albin Ramirez. Mr Ace is approached at bedside. Patient refuses to converse with card writer hand. Ignores the presence of MD. Declines to get out of bed. Refuses to answer questions. Psychiatric interview cannot be conducted. Due to patient's overt uncooperative behavior. Liaison psychiatrists will follow if allowed by patient. Discussed with nurses on duty.
[2019-12-26] MEDS: NICOTINE POLACRILEX 2 MG GUM BUC PRN (21:02)
[2019-12-26] MEDS: MELATONIN 5 MG TABLETS PO SCH (21:03)
[2019-12-26] MEDS: THIAMINE HCL 100 MG TABLET (FP) PO SCH (21:03)
[2019-12-27] MEDS: NICOTINE 7 MG/24 HOURS TOPICAL PATCH TD SCH (10:33)
[2019-12-27] MEDS: BACITRACIN 0.9 GM PACKET TP SCH (10:33)
[2019-12-27] MEDS: hydrOXYzine PAMOATE 25 MG CAPSULE (FP) PO PRN ×2 (10:33→21:32)
[2019-12-27] MEDS: PRENATAL VITAMINS W/ FOLIC ACID TABLET (FP) PO SCH (10:33)
[2019-12-27] MEDS: NICOTINE POLACRILEX 2 MG GUM BUC PRN (10:34)
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
[2019-12-27] MEDS ORDERED: PT OWN MED DRAWER 7, Y5N ONE (10:58)
[2019-12-27] MEDS: SERTRALINE HCL 25 MG TABLET (FP) PO SCH (11:10)
[2019-12-27] MEDS: THIAMINE HCL 100 MG TABLET (FP) PO SCH (21:31)
[2019-12-27] MEDS: QUEtiapine FUMARATE 50 MG TABLET PO SCH (21:31)
[2019-12-27] MEDS: MELATONIN 5 MG TABLETS PO SCH (21:31)
[2019-12-28] MEDS: SERTRALINE HCL 25 MG TABLET (FP) PO SCH (09:20)
[2019-12-28] MEDS: BACITRACIN 0.9 GM PACKET TP SCH (09:20)
[2019-12-28] MEDS: PRENATAL VITAMINS W/ FOLIC ACID TABLET (FP) PO SCH (09:21)
[2019-12-28] MEDS: NICOTINE 7 MG/24 HOURS TOPICAL PATCH TD SCH (09:21)
[2019-12-28] MEDS: MELATONIN 5 MG TABLETS PO SCH (21:39)
[2019-12-28] MEDS: THIAMINE HCL 100 MG TABLET (FP) PO SCH (21:39)
[2019-12-28] MEDS: QUEtiapine FUMARATE 50 MG TABLET PO SCH (21:40)
[2019-12-29] MEDS: PRENATAL VITAMINS W/ FOLIC ACID TABLET (FP) PO SCH ×2 (09:53→10:43)
[2019-12-29] MEDS: BACITRACIN 0.9 GM PACKET TP SCH ×3 (09:53→21:32)
[2019-12-29] MEDS: SERTRALINE HCL 25 MG TABLET (FP) PO SCH ×2 (09:53→10:42)
[2019-12-29] MEDS: NICOTINE 7 MG/24 HOURS TOPICAL PATCH TD SCH (09:53)
[2019-12-29] MEDS: hydrOXYzine PAMOATE 25 MG CAPSULE (FP) PO PRN ×2 (14:34→21:32)
--- NOTE | 2019-12-29 15:31 | PN ---
[facility] Progress Note Note: Psychiatry Attending's note : Called by nurse. Issue : medication schedule. Patient wants time of his morning medications deferred. To be dispensed at times of his convenience (outside regulations). Mr Ace has continuously been testing limits/defying unit rules. Non compliant with plan of care. Refer to Multidisciplinary notes for details. Nurse is advised to strictly implement rules governing medications orders. Patient is clearly manipulative, oppositional, defiant and resistive to care. Chart reviewed. 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 No new findings in this presentation. Keep this patient under close observation. Suspicion of a borderline behavior. No need for active psychiatric reconsultation. Avoid confrontational approach but maintain vigilance and implement firm limit setting.
[2019-12-29] MEDS: THIAMINE HCL 100 MG TABLET (FP) PO SCH (21:32)
[2019-12-29] MEDS: QUEtiapine FUMARATE 50 MG TABLET PO SCH (21:32)
[2019-12-29] MEDS: MELATONIN 5 MG TABLETS PO SCH (21:33)
[2019-12-30] MEDS: PRENATAL VITAMINS W/ FOLIC ACID TABLET (FP) PO SCH (09:52)
[2019-12-30] MEDS: SERTRALINE HCL 25 MG TABLET (FP) PO SCH (09:53)
[2019-12-30] MEDS: BACITRACIN 0.9 GM PACKET TP SCH ×2 (09:53→22:07)
[2019-12-30] MEDS: NICOTINE 7 MG/24 HOURS TOPICAL PATCH TD SCH (09:53)
[2019-12-30] MEDS: THIAMINE HCL 100 MG TABLET (FP) PO SCH (22:07)
[2019-12-30] MEDS: QUEtiapine FUMARATE 50 MG TABLET PO SCH (22:07)
[2019-12-30] MEDS: MELATONIN 5 MG TABLETS PO SCH (22:08)
[2019-12-31] MEDS: SERTRALINE HCL 25 MG TABLET (FP) PO SCH (10:45)
[2019-12-31] MEDS: PRENATAL VITAMINS W/ FOLIC ACID TABLET (FP) PO SCH (10:45)
[2019-12-31] MEDS: BACITRACIN 0.9 GM PACKET TP SCH (10:45)
[2019-12-31] MEDS: NICOTINE 7 MG/24 HOURS TOPICAL PATCH TD SCH (10:45)
[2019-12-31] MEDS: THIAMINE HCL 100 MG TABLET (FP) PO SCH (21:40)
[2019-12-31] MEDS: hydrOXYzine PAMOATE 25 MG CAPSULE (FP) PO PRN (21:40)
[2019-12-31] MEDS: MELATONIN 5 MG TABLETS PO SCH (21:40)
[2019-12-31] MEDS: QUEtiapine FUMARATE 50 MG TABLET PO SCH (21:41)
[2020-01-01] MEDS: SERTRALINE HCL 25 MG TABLET (FP) PO SCH (09:23)
[2020-01-01] MEDS: PRENATAL VITAMINS W/ FOLIC ACID TABLET (FP) PO SCH (09:23)
[2020-01-01] MEDS: NICOTINE 7 MG/24 HOURS TOPICAL PATCH TD SCH (09:24)
[2020-01-01] MEDS: BACITRACIN 0.9 GM PACKET TP SCH (09:24)
[2020-01-01] MEDS: QUEtiapine FUMARATE 50 MG TABLET PO SCH (21:43)
[2020-01-01] MEDS: THIAMINE HCL 100 MG TABLET (FP) PO SCH (21:43)
[2020-01-01] MEDS: MELATONIN 5 MG TABLETS PO SCH (21:43)
[2020-01-02] MEDS: SERTRALINE HCL 25 MG TABLET (FP) PO SCH (10:00)
[2020-01-02] MEDS: BACITRACIN 0.9 GM PACKET TP SCH (10:00)
[2020-01-02] MEDS: PRENATAL VITAMINS W/ FOLIC ACID TABLET (FP) PO SCH (10:00)
[2020-01-02] MEDS: NICOTINE POLACRILEX 2 MG GUM BUC PRN (10:00)
[2020-01-02] MEDS: NICOTINE 7 MG/24 HOURS TOPICAL PATCH TD SCH (10:00)
[2020-01-02] MEDS: MELATONIN 5 MG TABLETS PO SCH (21:34)
[2020-01-02] MEDS: hydrOXYzine PAMOATE 25 MG CAPSULE (FP) PO PRN (21:34)
[2020-01-02] MEDS: THIAMINE HCL 100 MG TABLET (FP) PO SCH (21:34)
[2020-01-02] MEDS: QUEtiapine FUMARATE 50 MG TABLET PO SCH (21:35)
[2020-01-03] MEDS: SERTRALINE HCL 25 MG TABLET (FP) PO SCH (09:56)
[2020-01-03] MEDS: BACITRACIN 0.9 GM PACKET TP SCH (09:56)
[2020-01-03] MEDS: NICOTINE 7 MG/24 HOURS TOPICAL PATCH TD SCH (09:56)
[2020-01-03] MEDS: PRENATAL VITAMINS W/ FOLIC ACID TABLET (FP) PO SCH (09:56)
[2020-01-03] MEDS: NICOTINE POLACRILEX 2 MG GUM BUC PRN (13:49)
[2020-01-03] MEDS: hydrOXYzine PAMOATE 25 MG CAPSULE (FP) PO PRN ×2 (13:49→21:37)
--- NOTE | 2020-01-03 14:40 | PN ---
[facility] Progress Note Note: patient c/o clear discharge from penis that has been happening for a couple of years. Denies pain, odor, lesions. General: No apparent distress : deferred at patient request Neuro: No cognitive deficits noted MSK: full weight bearing. A/P Penile discharge Will Do GC/Chlamydia/Trich labs
[2020-01-03] MEDS: THIAMINE HCL 100 MG TABLET (FP) PO SCH (21:37)
[2020-01-03] MEDS: MELATONIN 5 MG TABLETS PO SCH (21:37)
[2020-01-03] MEDS: QUEtiapine FUMARATE 50 MG TABLET PO SCH (21:38)
[2020-01-04] MEDS: NICOTINE POLACRILEX 2 MG GUM BUC PRN ×2 (10:17→17:38)
[2020-01-04] MEDS: BACITRACIN 0.9 GM PACKET TP SCH (10:17)
[2020-01-04] MEDS: NICOTINE 7 MG/24 HOURS TOPICAL PATCH TD SCH (10:17)
[2020-01-04] MEDS: hydrOXYzine PAMOATE 25 MG CAPSULE (FP) PO PRN ×2 (10:17→21:31)
[2020-01-04] MEDS: SERTRALINE HCL 25 MG TABLET (FP) PO SCH (10:17)
[2020-01-04] MEDS: PRENATAL VITAMINS W/ FOLIC ACID TABLET (FP) PO SCH (10:18)
[2020-01-04] MEDS: THIAMINE HCL 100 MG TABLET (FP) PO SCH (21:31)
[2020-01-04] MEDS: MELATONIN 5 MG TABLETS PO SCH (21:31)
[2020-01-04] MEDS: QUEtiapine FUMARATE 50 MG TABLET PO SCH (21:32)
[2020-01-05 07:45] VITALS: BP 120/65; PULSE 70; TEMP 99.5
[2020-01-05] MEDS: PRENATAL VITAMINS W/ FOLIC ACID TABLET (FP) PO SCH (10:00)
[2020-01-05] MEDS: NICOTINE 7 MG/24 HOURS TOPICAL PATCH TD SCH (10:00)
[2020-01-05] MEDS: SERTRALINE HCL 25 MG TABLET (FP) PO SCH (10:00)
[2020-01-05] MEDS: BACITRACIN 0.9 GM PACKET TP SCH (10:01)
[2020-01-05 12:01] LABS: PH,URINE 5.5 (5.0-8.0); URINE APPEARANCE TURBID; URINE BILIRUBIN NEGATIVE (NEGATIVE); URINE COLOR YELLOW; URINE GLUCOSE (UA) NEGATIVE (NEGATIVE); URINE KETONE NEGATIVE (NEGATIVE); URINE LEUK ESTERASE NEGATIVE (NEGATIVE); URINE NITRITE NEGATIVE (NEGATIVE); URINE PROTEIN NEGATIVE (NEGATIVE); URINE UROBILINOGEN 0.2 mg/dL (0.2-1.0)
[2020-01-05] MEDS: hydrOXYzine PAMOATE 25 MG CAPSULE (FP) PO PRN (13:04)
[2020-01-05] MEDS: MELATONIN 5 MG TABLETS PO SCH (21:49)
[2020-01-05] MEDS: THIAMINE HCL 100 MG TABLET (FP) PO SCH (21:49)
[2020-01-05] MEDS: QUEtiapine FUMARATE 50 MG TABLET PO SCH (21:49)
[2020-01-06] MEDS: SERTRALINE HCL 25 MG TABLET (FP) PO SCH (09:47)
[2020-01-06] MEDS: BACITRACIN 0.9 GM PACKET TP SCH (09:47)
[2020-01-06] MEDS: PRENATAL VITAMINS W/ FOLIC ACID TABLET (FP) PO SCH (09:48)
[2020-01-06] MEDS: NICOTINE 7 MG/24 HOURS TOPICAL PATCH TD SCH (09:48)
[2020-01-06] MEDS: MELATONIN 5 MG TABLETS PO SCH (21:36)
[2020-01-06] MEDS: THIAMINE HCL 100 MG TABLET (FP) PO SCH (21:36)
[2020-01-06] MEDS: QUEtiapine FUMARATE 50 MG TABLET PO SCH (21:36)
--- NOTE | 2020-01-07 09:05 | PN ---
[facility] Progress Note Note: Patient is scheduled for duischarge today. Scripts for 30 days supply of medications(Csdrad57 mg/day, Seroquel 50 mg/hs) are electronically transmitted to [facility], [address] [place] [id number]
[2020-01-07] MEDS: PRENATAL VITAMINS W/ FOLIC ACID TABLET (FP) PO SCH (09:19)
[2020-01-07] MEDS: SERTRALINE HCL 25 MG TABLET (FP) PO SCH (09:19)
[2020-01-07] MEDS: NICOTINE 7 MG/24 HOURS TOPICAL PATCH TD SCH (09:20)
[2020-01-07] MEDS: BACITRACIN 0.9 GM PACKET TP SCH (09:20)
--- NOTE | 2020-01-08 09:41 | DS ---
[facility] Rehab Discharge Summary - [facility] Rehab Discharge Summary Admission Date: 12/24/19 Discharge Date: 01/08/20 - History Present History: Alcohol dependence, Cocaine dependence - Discharge Physical Exam Vital Signs: Vital Signs Temperature 99.5 F 01/05/20 07:43 Pulse Rate 70 01/05/20 07:43 Respiratory Rate 16 01/05/20 07:43 Blood Pressure 120/65 01/05/20 07:43 O2 Sat by Pulse Oximetry (%) 97 01/06/20 20:29 ROS: DENIES ALCOHOL CRAVINGS, SWEATS, SHAKES, HEADACHE, FEVER, COUGH AND SOB PE ALERT AND ORIENTED X 3 SKIN WARM AND DRY NECK SUPPLE, NO JVD IN NAD EXT FULL ROM, AMB AD DREA NO TREMORS DENIES SI/HI A/P: ALCOHOL/COCAINE DEPENDENCE PATIENT IS MEDICALLY STABLE FOR DISCHARGE PATIENT REFERRED TO [facility] FOR AFTERCARE. REFUSED PACKET TO BE FAXED TO CENTER BY COUNSELOR. - Treatment Discharge Condition: Discharge condition good Hospital Course: PATIENT DISCHARGED FROM REHAB TODAY. HE IS MEDICALLY STABLE AND DENIES SI/HI. PATIENT ATTENDED GROUP MEETINGS, 1:1 SESSIONS WITH COUNSELING STAFF AND IS MOTIVATED TO MAINTAIN SOBRIETY UPON DISCHARGE. AFTERCARE ARRANGED FOR [facility], PATIENT TO MAKE OWN APPT HE REFUSED PACKET TO BE FAXED BY COUNSELOR. MEDICALLY ADVISED TO FOLLOW UP WITH PROGRAM UPON DISCHARGE AND FOLLOW UP WITH PCP RECOMMENDED. Ambulatory Orders Quetiapine Fumarate [Seroquel -] 50 mg PO HS #30 tablet 01/07/20 Sertraline HCl [Zoloft -] 25 mg PO DAILY #30 tablet 01/07/20 - Medication Discharge Medications: Ambulatory Orders Quetiapine Fumarate [Seroquel -] 50 mg PO HS #30 tablet 01/07/20 Sertraline HCl [Zoloft -] 25 mg PO DAILY #30 tablet 01/07/20 - Medication-Assisted Treatment (MAT) Medication-Assisted Treatment (MAT): No MAT Follow-up Referral: [facility] - Discharge Instructions Diet, activity, other medical instructions: Diet: REG RECOMMENDED Activity: DREA TOLERATED Other medical instructions: F/U WITH PCP RECOMMENDED - Follow-up Referral Minutes to complete discharge: 40 - AMA Did Patient Leave Against Medical Advice: No
== END 2020-01-07 09:28 | disposition home or self-care (01) | DRG 772 ==
LOC: YASAS 13:45 → Y3E 13:47
PROVIDERS: ADMIT Allergy & Immunology; ATTEND Allergy & Immunology
PROC: HZ42ZZZ Group Counseling for Substance Abuse Treatment, Cognitive-Behavioral (ICD-10-PCS; principal; 2019-12-24)
DX: F10.20 Alcohol dependence, uncomplicated (principal); F11.20 Opioid dependence, uncomplicated; F14.20 Cocaine dependence, uncomplicated; F17.210 Nicotine dependence, cigarettes, uncomplicated; F19.282 Other psychoactive substance dependence with psychoactive substance-induced sleep disorder; F19.24 Other psychoactive substance dependence with psychoactive substance-induced mood disorder; F32.9 Major depressive disorder, single episode, unspecified; L90.5 Scar conditions and fibrosis of skin; R36.9 Urethral discharge, unspecified; Z62.810 Personal history of physical and sexual abuse in childhood; Z56.0 Unemployment, unspecified; Z59.0 Homelessness
CPT/HCPCS: 36415; 81003; 87086; 87491; 87591

== ENCOUNTER 2020-06-04 10:39 | Inpatient (IN) | payer OTHER ==
[2020-06-04 12:49] VITALS: BMI 34.4
[2020-06-04] MEDS ORDERED: MAGNESIUM CITRATE 300 ML BOTTLE PO PRN (13:15)
[2020-06-04] MEDS ORDERED: cloNIDine HCL 0.1 MG TABLET PO PRN (13:15)
[2020-06-04] MEDS ORDERED: ACETAMINOPHEN 325 MG TABLET (FP) PO PRN ×2 (13:15)
[2020-06-04] MEDS ORDERED: NICOTINE POLACRILEX 2 MG GUM BUC PRN (13:15)
[2020-06-04] MEDS ORDERED: MENTHOL/PHENOL 1 EACH UD MM PRN (13:15)
[2020-06-04] MEDS ORDERED: MAGNESIUM HYDROX 2400MG/30ML ORAL SUSPENSION 30 ML CUP PO PRN (13:15)
[2020-06-04] MEDS ORDERED: METHOCARBAMOL 500 MG TABLET PO PRN (13:15)
[2020-06-04] MEDS ORDERED: METHADONE HCL 10 MG TABLET (FOR DETOX USE ONLY) PO ONE (13:15)
[2020-06-04] MEDS ORDERED: MAG HYDROX/AL HYDROX/SIMETH 30 ML UNIT-DOSE CUP PO PRN (13:15)
[2020-06-04] MEDS ORDERED: IBUPROFEN 400 MG TABLET (FP) PO PRN (13:15)
[2020-06-04] MEDS ORDERED: BISMUTH SUBSALICYLATE 262 MG/15 ML BTL PO PRN (13:15)
[2020-06-04] MEDS ORDERED: chlordiazePOXIDE HCL 25 MG CAPSULE PO PRN (13:15)
[2020-06-04 14:38] LABS: HEMATOCRIT 34.8 % (35.4-49); HEMOGLOBIN 11.6 GM/dL (11.7-16.9); MCH 31.1 pg (25.7-33.7); MCHC 33.2 g/dl (32.0-35.9); MEAN CELL VOLUME 93.6 fl (80-96); MEAN PLT VOLUME 7.9 fl (7.5-11.1); PLATELET COUNT 283 K/MM3 (134-434); RBC 3.72 M/mm3 (4.00-5.60); RDW 15.5 % (11.9-15.9); WHITE BLOOD COUNT 5.7 K/mm3 (4.0-10.0)
[2020-06-04 14:41] LABS: POTASSIUM 4.1 mmol/L (3.5-5.1)
[2020-06-04 14:43] LABS: ALBUMIN 3.6 g/dl (3.4-5.0); BLOOD UREA NITROGEN 10.6 mg/dL (7-18); CALCIUM 8.9 mg/dL (8.5-10.1)
[2020-06-04 14:48] LABS: BILIRUBIN,TOTAL 0.1 mg/dL (0.2-1); TOT PROT 6.9 g/dl (6.4-8.2)
[2020-06-04] MEDS: ONDANSETRON *ODT* 4 MG TABLET SL PRN (15:40)
[2020-06-04] MEDS: hydrOXYzine PAMOATE 25 MG CAPSULE (FP) PO SCH ×3 (15:41→22:38)
[2020-06-04] MEDS ORDERED: chlordiazePOXIDE HCL 25 MG CAPSULE PO SCH (17:00)
[2020-06-04] MEDS ORDERED: LORazepam 1 MG TABLET PO PRN (17:16)
[2020-06-04] MEDS: LORazepam 2 MG TABLET PO SCH ×2 (17:57→22:38)
[2020-06-04] MEDS: MELATONIN 5 MG TABLETS PO SCH (22:38)
[2020-06-04] MEDS: QUEtiapine FUMARATE 50 MG TABLET PO SCH (22:38)
[2020-06-04] MEDS: THIAMINE HCL 100 MG TABLET (FP) PO SCH (22:38)
[2020-06-05] MEDS: LORazepam 2 MG TABLET PO SCH ×4 (07:18→22:27)
[2020-06-05] MEDS: hydrOXYzine PAMOATE 25 MG CAPSULE (FP) PO SCH ×2 (07:18→11:08)
[2020-06-05] MEDS ORDERED: METHADONE (DETOX) 20 MG, METHADONE (DETOX) 5 MG PO ONE (10:00)
[2020-06-05] MEDS ORDERED: hydrOXYzine PAMOATE 25 MG CAPSULE (FP) PO PRN (10:23)
[2020-06-05] MEDS ORDERED: METHADONE HCL 10 MG TABLET (FOR DETOX USE ONLY) ONE (10:40)
[2020-06-05] MEDS ORDERED: METHADONE HCL 5 MG TABLET (FOR DETOX USE ONLY) ONE (10:40)
[2020-06-05] MEDS: PRENATAL VITAMINS W/ FOLIC ACID TABLET (FP) PO SCH (10:41)
[2020-06-05] MEDS: ONDANSETRON *ODT* 4 MG TABLET SL PRN (20:40)
[2020-06-05] MEDS: QUEtiapine FUMARATE 50 MG TABLET PO SCH (22:27)
[2020-06-05] MEDS: THIAMINE HCL 100 MG TABLET (FP) PO SCH (22:28)
[2020-06-05] MEDS ORDERED: MASKS NR ONE (22:30)
[2020-06-05] MEDS: MELATONIN 5 MG TABLETS PO SCH (22:38)
[2020-06-06] MEDS ORDERED: chlordiazePOXIDE HCL 25 MG CAPSULE PO SCH (05:00)
[2020-06-06] MEDS: LORazepam 1 MG TABLET PO SCH ×4 (06:52→22:06)
[2020-06-06] MEDS ORDERED: METHADONE HCL 10 MG TABLET (FOR DETOX USE ONLY) PO ONE (10:00)
[2020-06-06] MEDS: PRENATAL VITAMINS W/ FOLIC ACID TABLET (FP) PO SCH (10:15)
[2020-06-06 11:13] LABS: POTASSIUM 4.2 mmol/L (3.5-5.1)
[2020-06-06 11:18] LABS: CALCIUM 8.4 mg/dL (8.5-10.1)
[2020-06-06 11:19] LABS: BLOOD UREA NITROGEN 9.5 mg/dL (7-18)
[2020-06-06 11:23] LABS: BASO % 0.5 % (0-2.0); BILIRUBIN,TOTAL 0.9 mg/dL (0.2-1); EOS % 4.6 % (0-4.5); HEMATOCRIT 35.9 % (35.4-49); HEMOGLOBIN 11.8 GM/dL (11.7-16.9); LYMPH % 46.5 % (8-40); MCH 30.9 pg (25.7-33.7); MCHC 32.9 g/dl (32.0-35.9); MEAN CELL VOLUME 93.9 fl (80-96); MEAN PLT VOLUME 7.7 fl (7.5-11.1); MONO % 10.2 % (3.8-10.2); NEUT % 38.2 % (42.8-82.8); PLATELET COUNT 320 K/MM3 (134-434); RBC 3.83 M/mm3 (4.00-5.60); RDW 15.8 % (11.9-15.9); TOT PROT 5.9 g/dl (6.4-8.2); WHITE BLOOD COUNT 6.7 K/mm3 (4.0-10.0)
[2020-06-06] MEDS ORDERED: PENICILLIN G BENZATHINE 2,400,000 UNIT/4 ML PFS IM ONE (13:31)
[2020-06-06] MEDS: MELATONIN 5 MG TABLETS PO SCH (22:06)
[2020-06-06] MEDS: THIAMINE HCL 100 MG TABLET (FP) PO SCH (22:06)
[2020-06-06] MEDS: QUEtiapine FUMARATE 50 MG TABLET PO SCH (22:06)
[2020-06-07] MEDS ORDERED: LORazepam 0.5 MG TABLET PO PRN
[2020-06-07] MEDS ORDERED: chlordiazePOXIDE HCL 10 MG CAPSULE PO PRN
[2020-06-07] MEDS ORDERED: IBUPROFEN 400 MG TABLET (FP) PO ONE (03:55)
[2020-06-07] MEDS ORDERED: chlordiazePOXIDE HCL 10 MG CAPSULE PO SCH (05:00)
[2020-06-07] MEDS: LORazepam 0.5 MG TABLET PO SCH ×2 (05:25→10:05)
[2020-06-07] MEDS ORDERED: ACETAMINOPHEN 325 MG TABLET (FP) PO ONE (07:33)
[2020-06-07] MEDS ORDERED: BENZOCAINE 20 % GEL TUBE MM PRN (07:36)
[2020-06-07] MEDS ORDERED: METHADONE HCL 10 MG TABLET (FOR DETOX USE ONLY) ONE (09:14)
[2020-06-07] MEDS ORDERED: METHADONE HCL 5 MG TABLET (FOR DETOX USE ONLY) ONE (09:14)
[2020-06-07] MEDS ORDERED: METHADONE (DETOX) 10 MG, METHADONE (DETOX) 5 MG PO ONE (10:00)
[2020-06-07] MEDS: PRENATAL VITAMINS W/ FOLIC ACID TABLET (FP) PO SCH (10:05)
[2020-06-07] MEDS ORDERED: LIDOCAINE VISCOUS 2% ORAL/TOP 20 ML UNIT-DOSE CUP MM PRN (10:33)
[2020-06-07] MEDS ORDERED: IBUPROFEN 400 MG TABLET (FP) PO PRN (12:00)
[2020-06-07 12:59] VITALS: BP 117/60; PULSE 83; TEMP 97.3
[2020-06-08] MEDS ORDERED: chlordiazePOXIDE HCL 10 MG CAPSULE PO SCH (05:00)
[2020-06-08] MEDS ORDERED: LORazepam 0.5 MG TABLET PO ONE (05:00)
[2020-06-08] MEDS ORDERED: METHADONE HCL 10 MG TABLET (FOR DETOX USE ONLY) PO ONE (10:00)
[2020-06-09] MEDS ORDERED: chlordiazePOXIDE HCL 10 MG CAPSULE PO ONE (05:00)
[2020-06-09] MEDS ORDERED: METHADONE HCL 5 MG TABLET (FOR DETOX USE ONLY) PO ONE (06:00)
== END 2020-06-07 16:47 | disposition left against medical advice (07) | DRG 770 ==
LOC: YASAS 10:39 → Y6N 14:55
PROVIDERS: ADMIT Allergy & Immunology; ATTEND Allergy & Immunology
PROC: HZ2ZZZZ Detoxification Services for Substance Abuse Treatment (ICD-10-PCS; principal; 2020-06-04)
DX: F11.23 Opioid dependence with withdrawal (principal); F10.230 Alcohol dependence with withdrawal, uncomplicated; F14.20 Cocaine dependence, uncomplicated; F17.210 Nicotine dependence, cigarettes, uncomplicated; F19.24 Other psychoactive substance dependence with psychoactive substance-induced mood disorder; F19.282 Other psychoactive substance dependence with psychoactive substance-induced sleep disorder; F32.9 Major depressive disorder, single episode, unspecified; R74.01 Elevation of levels of liver transaminase levels; R76.8 Other specified abnormal immunological findings in serum; Z62.810 Personal history of physical and sexual abuse in childhood; Z59.0 Homelessness
CPT/HCPCS: 36415; 80053; 85025; 85027; 86593; 86780; C9803; Q0162; U0003

== ENCOUNTER 2020-10-23 13:10 | Inpatient (IN) | payer OTHER ==
[2020-10-23 18:35] VITALS: BMI 31.6
[2020-10-23] MEDS ORDERED: BISMUTH SUBSALICYLATE 524 MG/30 ML UD PO PRN (21:16)
[2020-10-23] MEDS ORDERED: MAGNESIUM HYDROX 2400MG/30ML ORAL SUSPENSION 30 ML CUP PO PRN (21:16)
[2020-10-23] MEDS ORDERED: MAG HYDROX/AL HYDROX/SIMETH 30 ML UNIT-DOSE CUP PO PRN (21:16)
[2020-10-23] MEDS ORDERED: hydrOXYzine PAMOATE 25 MG CAPSULE (FP) PO PRN (21:16)
[2020-10-23] MEDS ORDERED: ONDANSETRON *ODT* 4 MG TABLET SL PRN (21:16)
[2020-10-23] MEDS ORDERED: MENTHOL/PHENOL 1 EACH UD MM PRN (21:16)
[2020-10-23] MEDS ORDERED: METHADONE HCL 10 MG TABLET (FOR DETOX USE ONLY) PO ONE (21:16)
[2020-10-23] MEDS ORDERED: MAGNESIUM CITRATE 300 ML BOTTLE PO PRN (21:16)
[2020-10-23] MEDS ORDERED: IBUPROFEN 400 MG TABLET (FP) PO PRN (21:16)
[2020-10-23] MEDS ORDERED: ACETAMINOPHEN 325 MG TABLET (FP) PO PRN ×2 (21:16)
[2020-10-23] MEDS ORDERED: NICOTINE POLACRILEX 2 MG GUM BUC PRN (21:16)
[2020-10-23] MEDS ORDERED: cloNIDine HCL 0.1 MG TABLET PO PRN (21:16)
[2020-10-23] MEDS: THIAMINE HCL 100 MG TABLET (FP) PO SCH (23:15)
[2020-10-23] MEDS: MELATONIN 5 MG TABLETS PO SCH (23:16)
[2020-10-24] MEDS ORDERED: diazePAM 5 MG TABLET PO PRN (08:48)
[2020-10-24] MEDS ORDERED: METHADONE HCL 10 MG TABLET (FOR DETOX USE ONLY) ONE (09:47)
[2020-10-24] MEDS ORDERED: METHADONE HCL 5 MG TABLET (FOR DETOX USE ONLY) ONE (09:47)
[2020-10-24] MEDS ORDERED: METHADONE (DETOX) 20 MG, METHADONE (DETOX) 5 MG PO ONE (10:00)
[2020-10-24] MEDS: METHOCARBAMOL 500 MG TABLET PO PRN ×2 (10:57→22:37)
[2020-10-24] MEDS: PRENATAL VITAMINS W/ FOLIC ACID TABLET (FP) PO SCH (10:57)
[2020-10-24 11:30] LABS: HEMATOCRIT 34.5 % (35.4-49); HEMOGLOBIN 11.7 GM/dL (11.7-16.9); MCH 31.8 pg (25.7-33.7); MCHC 33.8 g/dl (32.0-35.9); MEAN CELL VOLUME 94.2 fl (80-96); MEAN PLT VOLUME 7.9 fl (7.5-11.1); PLATELET COUNT 308 K/MM3 (134-434); RBC 3.67 M/mm3 (4.00-5.60); RDW 15.3 % (11.9-15.9); WHITE BLOOD COUNT 4.8 K/mm3 (4.0-10.0)
[2020-10-24 11:38] LABS: CALCIUM 8.4 mg/dL (8.5-10.1)
[2020-10-24 11:39] LABS: ALBUMIN 3.4 g/dl (3.4-5.0); BLOOD UREA NITROGEN 9.6 mg/dL (7-18)
[2020-10-24 11:42] LABS: CREATININE 0.8 mg/dL (0.55-1.3)
[2020-10-24 11:43] LABS: BILIRUBIN,TOTAL 0.2 mg/dL (0.2-1); TOT PROT 6.5 g/dl (6.4-8.2)
[2020-10-24 12:31] LABS: HIV INTERPRETATION NEGATIVE (NEGATIVE)
[2020-10-24] MEDS: MELATONIN 5 MG TABLETS PO SCH (22:36)
[2020-10-24] MEDS: FLUOCINONIDE 0.05% CREAM (60 GM TUBE) TP SCH (22:36)
[2020-10-24] MEDS: THIAMINE HCL 100 MG TABLET (FP) PO SCH (22:36)
[2020-10-25] MEDS ORDERED: METHADONE HCL 10 MG TABLET (FOR DETOX USE ONLY) PO ONE (10:00)
[2020-10-25] MEDS: PRENATAL VITAMINS W/ FOLIC ACID TABLET (FP) PO SCH (11:04)
[2020-10-25] MEDS: FLUOCINONIDE 0.05% CREAM (60 GM TUBE) TP SCH ×2 (11:06→22:47)
[2020-10-25] MEDS: METHOCARBAMOL 500 MG TABLET PO PRN (11:07)
[2020-10-25] MEDS: MELATONIN 5 MG TABLETS PO SCH (22:47)
[2020-10-25] MEDS: THIAMINE HCL 100 MG TABLET (FP) PO SCH (22:47)
[2020-10-26 06:36] LABS: SARS-CoV-2 NAA Not Detected (Not Detected)
[2020-10-26] MEDS ORDERED: METHADONE HCL 10 MG TABLET (FOR DETOX USE ONLY) ONE (09:24)
[2020-10-26] MEDS ORDERED: METHADONE HCL 5 MG TABLET (FOR DETOX USE ONLY) ONE (09:25)
[2020-10-26] MEDS ORDERED: METHADONE (DETOX) 10 MG, METHADONE (DETOX) 5 MG PO ONE (10:00)
[2020-10-26] MEDS: FLUOCINONIDE 0.05% CREAM (60 GM TUBE) TP SCH ×2 (10:46→22:39)
[2020-10-26] MEDS: PRENATAL VITAMINS W/ FOLIC ACID TABLET (FP) PO SCH (10:46)
[2020-10-26] MEDS: MELATONIN 5 MG TABLETS PO SCH (22:39)
[2020-10-26] MEDS: THIAMINE HCL 100 MG TABLET (FP) PO SCH (22:39)
[2020-10-27] MEDS ORDERED: METHADONE HCL 10 MG TABLET (FOR DETOX USE ONLY) PO ONE (10:00)
[2020-10-27] MEDS: PRENATAL VITAMINS W/ FOLIC ACID TABLET (FP) PO SCH (10:32)
[2020-10-27] MEDS: FLUOCINONIDE 0.05% CREAM (60 GM TUBE) TP SCH ×2 (10:34→22:15)
[2020-10-27] MEDS: MELATONIN 5 MG TABLETS PO SCH (22:14)
[2020-10-27] MEDS: THIAMINE HCL 100 MG TABLET (FP) PO SCH (22:14)
[2020-10-28] MEDS ORDERED: METHADONE HCL 5 MG TABLET (FOR DETOX USE ONLY) PO ONE (06:00)
[2020-10-28 09:11] VITALS: BP 100/59; PULSE 78; TEMP 96.4
[2020-10-28] MEDS: PRENATAL VITAMINS W/ FOLIC ACID TABLET (FP) PO SCH (09:58)
[2020-10-28] MEDS: FLUOCINONIDE 0.05% CREAM (60 GM TUBE) TP SCH (09:58)
== END 2020-10-28 09:20 | disposition home or self-care (01) | DRG 773 ==
LOC: YASAS 13:10 → Y3N 21:55
PROVIDERS: ADMIT Allergy & Immunology; ATTEND Allergy & Immunology
PROC: HZ2ZZZZ Detoxification Services for Substance Abuse Treatment (ICD-10-PCS; principal; 2020-10-23)
DX: F11.23 Opioid dependence with withdrawal (principal); F10.230 Alcohol dependence with withdrawal, uncomplicated; F14.20 Cocaine dependence, uncomplicated; F16.10 Hallucinogen abuse, uncomplicated; F17.210 Nicotine dependence, cigarettes, uncomplicated; K21.9 Gastro-esophageal reflux disease without esophagitis; L30.9 Dermatitis, unspecified; A53.0 Latent syphilis, unspecified as early or late; E66.9 Obesity, unspecified; Z68.31 Body mass index [BMI] 31.0-31.9, adult; Z56.0 Unemployment, unspecified; Z59.0 Homelessness
CPT/HCPCS: 36415; 80053; 85027; 86593; 86780; 87389; 93005; 93010; C9803; U0003; U0005

== ENCOUNTER 2021-03-13 14:54 | Inpatient (IN) | payer OTHER ==
[2021-03-13 18:02] VITALS: BMI 30.9
[2021-03-13] MEDS ORDERED: NICOTINE POLACRILEX 2 MG GUM BUC PRN (18:59)
[2021-03-13] MEDS ORDERED: ACETAMINOPHEN 325 MG TABLET (FP) PO PRN ×2 (18:59)
[2021-03-13] MEDS ORDERED: MAGNESIUM HYDROX 2400MG/30ML ORAL SUSPENSION 30 ML CUP PO PRN (18:59)
[2021-03-13] MEDS ORDERED: METHOCARBAMOL 500 MG TABLET PO PRN (18:59)
[2021-03-13] MEDS ORDERED: MENTHOL/PHENOL 1 EACH UD MM PRN (18:59)
[2021-03-13] MEDS ORDERED: BISMUTH SUBSALICYLATE 524 MG/30 ML PO PRN (18:59)
[2021-03-13] MEDS ORDERED: ONDANSETRON *ODT* 4 MG TABLET SL PRN (18:59)
[2021-03-13] MEDS ORDERED: NICOTINE 10 MG CARTRIDGE (INHALER) IH PRN (18:59)
[2021-03-13] MEDS ORDERED: MAGNESIUM CITRATE 300 ML BOTTLE PO PRN (18:59)
[2021-03-13] MEDS ORDERED: P-EPHED 60MG/TRIPROLIDI 2.5MG TABLET PO PRN (18:59)
[2021-03-13] MEDS ORDERED: IBUPROFEN 400 MG TABLET (FP) PO PRN (18:59)
[2021-03-13] MEDS ORDERED: MAG HYDROX/AL HYDROX/SIMETH 30 ML UNIT-DOSE CUP PO PRN (18:59)
[2021-03-13] MEDS ORDERED: diazePAM 5 MG TABLET PO PRN (20:15)
[2021-03-13] MEDS ORDERED: cloNIDine HCL 0.1 MG TABLET PO PRN (20:16)
[2021-03-13] MEDS ORDERED: methaDONE HCL 10 MG TABLET (FOR DETOX USE ONLY) PO ONE (20:16)
[2021-03-13] MEDS: diazePAM 5 MG TABLET PO SCH (23:30)
[2021-03-13] MEDS: MELATONIN 5 MG TABLETS PO SCH (23:32)
[2021-03-13] MEDS: hydrOXYzine PAMOATE 25 MG CAPSULE (FP) PO SCH (23:32)
[2021-03-13] MEDS: THIAMINE HCL 100 MG TABLET (FP) PO SCH (23:32)
[2021-03-14] MEDS: hydrOXYzine PAMOATE 25 MG CAPSULE (FP) PO SCH ×5 (05:29→22:27)
[2021-03-14] MEDS: diazePAM 5 MG TABLET PO SCH ×4 (05:30→22:27)
[2021-03-14] MEDS ORDERED: methaDONE HCL 10 MG TABLET (FOR DETOX USE ONLY) ONE (09:16)
[2021-03-14] MEDS: PRENATAL VITAMINS W/ FOLIC ACID TABLET (FP) PO SCH (10:46)
[2021-03-14 14:31] LABS: HEMATOCRIT 34.2 % (35.4-49); HEMOGLOBIN 11.6 GM/dL (11.7-16.9); MCH 31.9 pg (25.7-33.7); MEAN CELL VOLUME 93.6 fl (80-96); MEAN PLT VOLUME 8.6 fl (7.5-11.1); PLATELET COUNT 233 10^3/uL (134-434); RBC 3.65 M/mm3 (4.00-5.60); RDW 14.9 % (11.9-15.9); WHITE BLOOD COUNT 5.1 K/mm3 (4.0-10.0)
[2021-03-14] MEDS: THIAMINE HCL 100 MG TABLET (FP) PO SCH (22:25)
[2021-03-14] MEDS: MELATONIN 5 MG TABLETS PO SCH (22:27)
[2021-03-14] MEDS: QUEtiapine FUMARATE 50 MG TABLET PO SCH (22:27)
[2021-03-14 22:57] LABS: BLOOD UREA NITROGEN 9.5 mg/dL (7-18); CALCIUM 8.7 mg/dL (8.5-10.1); CHLORIDE 106 mmol/L (98-107); CO2 26 mmol/L (21-32); GLUCOSE,RANDOM 92 mg/dL (74-106); SODIUM 139 mmol/L (136-145); TOT PROT 6.7 g/dl (6.4-8.2)
[2021-03-14 22:58] LABS: ALBUMIN 3.1 g/dl (3.4-5.0); ALK PHOS 59 U/L (45-117); BILIRUBIN,TOTAL < 0.1 mg/dL (0.2-1); SGOT/AST 46 U/L (15-37); SGPT/ALT 76 U/L (13-61)
[2021-03-15] MEDS: hydrOXYzine PAMOATE 25 MG CAPSULE (FP) PO SCH ×5 (05:46→22:30)
[2021-03-15] MEDS: diazePAM 5 MG TABLET PO SCH ×3 (05:46→22:31)
[2021-03-15 08:48] LABS: ANION GAP 7 MMOL/L (8-16)
[2021-03-15] MEDS ORDERED: methaDONE HCL 10 MG TABLET (FOR DETOX USE ONLY) PO ONE (10:00)
[2021-03-15] MEDS: PRENATAL VITAMINS W/ FOLIC ACID TABLET (FP) PO SCH (10:51)
[2021-03-15] MEDS: ESCITALOPRAM OXALATE 10 MG TABLET PO SCH (10:51)
[2021-03-15 15:43] LABS: HIV INTERPRETATION NEGATIVE (NEGATIVE)
[2021-03-15] MEDS: THIAMINE HCL 100 MG TABLET (FP) PO SCH (22:30)
[2021-03-15] MEDS: QUEtiapine FUMARATE 50 MG TABLET PO SCH (22:30)
[2021-03-15] MEDS: MELATONIN 5 MG TABLETS PO SCH (22:30)
[2021-03-16] MEDS: hydrOXYzine PAMOATE 25 MG CAPSULE (FP) PO SCH ×5 (06:36→22:32)
[2021-03-16] MEDS: diazePAM 5 MG TABLET PO SCH ×2 (06:36→17:53)
[2021-03-16] MEDS ORDERED: methaDONE HCL 10 MG TABLET (FOR DETOX USE ONLY) ONE (08:39)
[2021-03-16] MEDS: ESCITALOPRAM OXALATE 10 MG TABLET PO SCH (10:48)
[2021-03-16] MEDS: PRENATAL VITAMINS W/ FOLIC ACID TABLET (FP) PO SCH (10:52)
[2021-03-16] MEDS: MELATONIN 5 MG TABLETS PO SCH (22:32)
[2021-03-16] MEDS: QUEtiapine FUMARATE 50 MG TABLET PO SCH (22:32)
[2021-03-16] MEDS: THIAMINE HCL 100 MG TABLET (FP) PO SCH (22:32)
[2021-03-17] MEDS ORDERED: diazePAM 5 MG TABLET PO ONE (06:00)
[2021-03-17] MEDS: hydrOXYzine PAMOATE 25 MG CAPSULE (FP) PO SCH ×5 (06:14→23:40)
[2021-03-17] MEDS ORDERED: methaDONE HCL 10 MG TABLET (FOR DETOX USE ONLY) PO ONE (10:00)
[2021-03-17] MEDS: PRENATAL VITAMINS W/ FOLIC ACID TABLET (FP) PO SCH (10:07)
[2021-03-17] MEDS: ESCITALOPRAM OXALATE 10 MG TABLET PO SCH (10:07)
[2021-03-17] MEDS: THIAMINE HCL 100 MG TABLET (FP) PO SCH (23:40)
[2021-03-17] MEDS: QUEtiapine FUMARATE 50 MG TABLET PO SCH (23:40)
[2021-03-17] MEDS: MELATONIN 5 MG TABLETS PO SCH (23:40)
[2021-03-18] MEDS: hydrOXYzine PAMOATE 25 MG CAPSULE (FP) PO SCH ×2 (07:05→11:18)
[2021-03-18 09:02] VITALS: BP 112/20; PULSE 71; TEMP 97.4
[2021-03-18] MEDS: ESCITALOPRAM OXALATE 10 MG TABLET PO SCH (11:17)
[2021-03-18] MEDS: PRENATAL VITAMINS W/ FOLIC ACID TABLET (FP) PO SCH (11:17)
== END 2021-03-18 12:15 | disposition other institution (70) | DRG 773 ==
LOC: YASAS 14:54 → Y3N 22:00
PROVIDERS: ADMIT Allergy & Immunology; ATTEND Allergy & Immunology
PROC: HZ2ZZZZ Detoxification Services for Substance Abuse Treatment (ICD-10-PCS; principal; 2021-03-13)
DX: F11.23 Opioid dependence with withdrawal (principal); F10.230 Alcohol dependence with withdrawal, uncomplicated; F14.20 Cocaine dependence, uncomplicated; F15.20 Other stimulant dependence, uncomplicated; F17.210 Nicotine dependence, cigarettes, uncomplicated; F19.24 Other psychoactive substance dependence with psychoactive substance-induced mood disorder; F32.9 Major depressive disorder, single episode, unspecified; G47.00 Insomnia, unspecified; Z86.19 Personal history of other infectious and parasitic diseases; Z59.00 Homelessness unspecified; Z56.0 Unemployment, unspecified; Z91.19 Patient's noncompliance with other medical treatment and regimen
CPT/HCPCS: 36415; 80053; 85027; 86593; 86780; 87389; C9803; U0003; U0005

== ENCOUNTER 2021-03-18 12:19 | Inpatient (IN) | payer OTHER ==
[2021-03-18 12:28] VITALS: BP 123/76; TEMP 97.1
[2021-03-18] MEDS ORDERED: LOPERAMIDE HCL 2 MG CAPSULE PO PRN (14:05)
[2021-03-18] MEDS ORDERED: IBUPROFEN 400 MG TABLET (FP) PO PRN (14:05)
[2021-03-18] MEDS ORDERED: NICOTINE 10 MG CARTRIDGE (INHALER) IH PRN (14:05)
[2021-03-18] MEDS ORDERED: ACETAMINOPHEN 325 MG TABLET (FP) PO PRN (14:05)
[2021-03-18] MEDS ORDERED: MAG HYDROX/AL HYDROX/SIMETH 30 ML UNIT-DOSE CUP PO PRN (14:05)
[2021-03-18] MEDS ORDERED: P-EPHED 60MG/TRIPROLIDI 2.5MG TABLET PO PRN (14:05)
[2021-03-18] MEDS ORDERED: hydrOXYzine PAMOATE 25 MG CAPSULE (FP) PO PRN (14:05)
[2021-03-18] MEDS ORDERED: MENTHOL/PHENOL 1 EACH UD MM PRN (14:05)
[2021-03-18] MEDS ORDERED: MAGNESIUM CITRATE 300 ML BOTTLE PO PRN (14:05)
[2021-03-18] MEDS ORDERED: NICOTINE POLACRILEX 2 MG GUM BUC PRN (14:05)
[2021-03-18] MEDS ORDERED: guaiFENesin 200 MG/10 ML 10 ML UNIT-DOSE CUPS PO PRN (14:05)
[2021-03-18] MEDS ORDERED: MAGNESIUM HYDROX 2400MG/30ML ORAL SUSPENSION 30 ML CUP PO PRN (14:05)
[2021-03-18] MEDS ORDERED: MELATONIN 5 MG TABLETS PO SCH (22:00)
[2021-03-18] MEDS ORDERED: QUEtiapine FUMARATE 50 MG TABLET PO SCH (22:00)
[2021-03-18] MEDS ORDERED: THIAMINE HCL 100 MG TABLET (FP) PO SCH (22:00)
[2021-03-18 22:30] VITALS: PULSE 95
[2021-03-19] MEDS ORDERED: PRENATAL VITAMINS W/ FOLIC ACID TABLET (FP) PO SCH (10:00)
[2021-03-19] MEDS ORDERED: ESCITALOPRAM OXALATE 10 MG TABLET PO SCH (10:00)
[2021-03-19] MEDS ORDERED: NICOTINE 7 MG/24 HOURS TOPICAL PATCH TD SCH (10:00)
== END 2021-03-19 16:50 | disposition left against medical advice (07) | DRG 770 ==
LOC: YASAS 12:19 → Y3E 12:20
PROVIDERS: ADMIT Allergy & Immunology; ATTEND Allergy & Immunology
PROC: HZ42ZZZ Group Counseling for Substance Abuse Treatment, Cognitive-Behavioral (ICD-10-PCS; principal; 2021-03-18)
DX: F11.20 Opioid dependence, uncomplicated (principal); F10.20 Alcohol dependence, uncomplicated; F14.20 Cocaine dependence, uncomplicated; F17.210 Nicotine dependence, cigarettes, uncomplicated

== ENCOUNTER 2021-05-17 16:45 | Inpatient (IN) | payer OTHER ==
[2021-05-17 17:25] VITALS: BMI 32.3
[2021-05-17] MEDS ORDERED: ACETAMINOPHEN 325 MG TABLET (FP) PO PRN ×2 (19:23)
[2021-05-17] MEDS ORDERED: NICOTINE 10 MG CARTRIDGE (INHALER) IH PRN (19:23)
[2021-05-17] MEDS ORDERED: MENTHOL/PHENOL 1 EACH UD MM PRN (19:23)
[2021-05-17] MEDS ORDERED: MAGNESIUM HYDROX 2400MG/30ML ORAL SUSPENSION 30 ML CUP PO PRN (19:23)
[2021-05-17] MEDS ORDERED: NICOTINE POLACRILEX 2 MG GUM BUC PRN (19:23)
[2021-05-17] MEDS ORDERED: ONDANSETRON *ODT* 4 MG TABLET SL PRN (19:23)
[2021-05-17] MEDS ORDERED: METHOCARBAMOL 500 MG TABLET PO PRN (19:23)
[2021-05-17] MEDS ORDERED: MAGNESIUM CITRATE 300 ML BOTTLE PO PRN (19:23)
[2021-05-17] MEDS ORDERED: BISMUTH SUBSALICYLATE 524 MG/30 ML PO PRN (19:23)
[2021-05-17] MEDS ORDERED: IBUPROFEN 400 MG TABLET (FP) PO PRN (19:23)
[2021-05-17] MEDS ORDERED: chlordiazePOXIDE HCL 25 MG CAPSULE PO PRN (19:23)
[2021-05-17] MEDS ORDERED: MAG HYDROX/AL HYDROX/SIMETH 30 ML UNIT-DOSE CUP PO PRN (19:23)
[2021-05-17] MEDS ORDERED: PANTOPRAZOLE 20 MG TABLET PO ONE (19:30)
[2021-05-17] MEDS ORDERED: NALOXONE (NARCAN) HCL 4 MG/0.1 ML SPRAY NS PRN (20:09)
[2021-05-17] MEDS: hydrOXYzine PAMOATE 25 MG CAPSULE (FP) PO PRN (22:32)
[2021-05-17] MEDS: THIAMINE HCL 100 MG TABLET (FP) PO SCH (22:32)
[2021-05-17] MEDS: MELATONIN 5 MG TABLETS PO SCH (22:32)
[2021-05-17] MEDS: chlordiazePOXIDE HCL 25 MG CAPSULE PO SCH (22:33)
[2021-05-18] MEDS: chlordiazePOXIDE HCL 25 MG CAPSULE PO SCH (06:20)
[2021-05-18] MEDS ORDERED: cloNIDine HCL 0.1 MG TABLET PO PRN (11:01)
[2021-05-18] MEDS ORDERED: methaDONE HCL 10 MG TABLET (FOR DETOX USE ONLY) PO ONE (11:01)
[2021-05-18] MEDS: PANTOPRAZOLE 40 MG TABLET PO SCH (11:56)
[2021-05-18] MEDS: PRENATAL VITAMINS W/ FOLIC ACID TABLET (FP) PO SCH (11:56)
[2021-05-18 13:09] LABS: HEMATOCRIT 34.3 % (35.4-49); MCHC 35.2 g/dl (32.0-35.9); MEAN CELL VOLUME 90.9 fl (80-96); MEAN PLT VOLUME 7.8 fl (7.5-11.1); PLATELET COUNT 239 10^3/uL (134-434); RBC 3.77 M/mm3 (4.00-5.60); RDW 13.8 % (11.9-15.9)
[2021-05-18 13:13] LABS: CALCIUM 9.1 mg/dL (8.5-10.1)
[2021-05-18 13:14] LABS: ALBUMIN 3.4 g/dl (3.4-5.0); BLOOD UREA NITROGEN 6.8 mg/dL (7-18)
[2021-05-18 13:19] LABS: BILIRUBIN,TOTAL 0.4 mg/dL (0.2-1); TOT PROT 7.3 g/dl (6.4-8.2)
[2021-05-18] MEDS: NICOTINE POLACRILEX 4 MG GUM BUC PRN (16:12)
[2021-05-18] MEDS: MELATONIN 5 MG TABLETS PO SCH (23:39)
[2021-05-18] MEDS: THIAMINE HCL 100 MG TABLET (FP) PO SCH (23:39)
[2021-05-19] MEDS ORDERED: chlordiazePOXIDE HCL 25 MG CAPSULE PO SCH (05:00)
[2021-05-19] MEDS ORDERED: methaDONE HCL 10 MG TABLET (FOR DETOX USE ONLY) ONE (09:38)
[2021-05-19] MEDS: PRENATAL VITAMINS W/ FOLIC ACID TABLET (FP) PO SCH (10:39)
[2021-05-19] MEDS: PANTOPRAZOLE 40 MG TABLET PO SCH (10:39)
[2021-05-19] MEDS: NICOTINE POLACRILEX 4 MG GUM BUC PRN (13:22)
[2021-05-20] MEDS ORDERED: chlordiazePOXIDE HCL 10 MG CAPSULE PO PRN
[2021-05-20] MEDS: THIAMINE HCL 100 MG TABLET (FP) PO SCH ×2 (00:32→23:16)
[2021-05-20] MEDS: MELATONIN 5 MG TABLETS PO SCH ×2 (00:32→23:14)
[2021-05-20] MEDS ORDERED: chlordiazePOXIDE HCL 10 MG CAPSULE PO SCH (05:00)
[2021-05-20] MEDS ORDERED: methaDONE HCL 10 MG TABLET (FOR DETOX USE ONLY) PO ONE (10:00)
[2021-05-20] MEDS: hydrOXYzine PAMOATE 25 MG CAPSULE (FP) PO PRN (10:32)
[2021-05-20] MEDS: PRENATAL VITAMINS W/ FOLIC ACID TABLET (FP) PO SCH (10:32)
[2021-05-20] MEDS: PANTOPRAZOLE 40 MG TABLET PO SCH (10:33)
[2021-05-20] MEDS: NICOTINE POLACRILEX 4 MG GUM BUC PRN (10:54)
[2021-05-21] MEDS ORDERED: chlordiazePOXIDE HCL 10 MG CAPSULE PO SCH (05:00)
[2021-05-21] MEDS ORDERED: methaDONE HCL 10 MG TABLET (FOR DETOX USE ONLY) ONE (09:34)
[2021-05-21] MEDS: PRENATAL VITAMINS W/ FOLIC ACID TABLET (FP) PO SCH (11:14)
[2021-05-21] MEDS: PANTOPRAZOLE 40 MG TABLET PO SCH (11:15)
[2021-05-21] MEDS: NICOTINE POLACRILEX 4 MG GUM BUC PRN (11:20)
[2021-05-21] MEDS: THIAMINE HCL 100 MG TABLET (FP) PO SCH (23:44)
[2021-05-21] MEDS: MELATONIN 5 MG TABLETS PO SCH (23:44)
[2021-05-22] MEDS ORDERED: chlordiazePOXIDE HCL 10 MG CAPSULE PO ONE (05:00)
[2021-05-22 09:08] VITALS: BP 118/74; PULSE 94; TEMP 98.1
[2021-05-22] MEDS ORDERED: methaDONE HCL 10 MG TABLET (FOR DETOX USE ONLY) PO ONE (10:00)
== END 2021-05-22 09:46 | disposition left against medical advice (07) | DRG 770 ==
LOC: YASAS 16:45 → Y6N 20:13
PROVIDERS: ADMIT Allergy & Immunology; ATTEND Allergy & Immunology
PROC: HZ2ZZZZ Detoxification Services for Substance Abuse Treatment (ICD-10-PCS; principal; 2021-05-17)
DX: F11.23 Opioid dependence with withdrawal (principal); F10.230 Alcohol dependence with withdrawal, uncomplicated; F15.20 Other stimulant dependence, uncomplicated; F17.210 Nicotine dependence, cigarettes, uncomplicated; F19.24 Other psychoactive substance dependence with psychoactive substance-induced mood disorder; F19.282 Other psychoactive substance dependence with psychoactive substance-induced sleep disorder; K21.9 Gastro-esophageal reflux disease without esophagitis; B18.2 Chronic viral hepatitis C; Z91.51 Personal history of suicidal behavior; Z86.19 Personal history of other infectious and parasitic diseases; Z56.0 Unemployment, unspecified; Z59.00 Homelessness unspecified
CPT/HCPCS: 36415; 80053; 85027; 86593; 86780; 93005; 93010; C9803; U0003; U0005

== ENCOUNTER 2023-08-27 21:23 | Inpatient (IN) | payer OTHER ==
[2023-08-27 21:57] VITALS: BMI 37.2
[2023-08-27] MEDS ORDERED: MAGNESIUM HYDROX 2400MG/30ML ORAL SUSPENSION 30 ML CUP PO PRN (22:32)
[2023-08-27] MEDS ORDERED: NALOXONE HCL 0.4 MG/ML VIAL IM PRN (22:32)
[2023-08-27] MEDS ORDERED: BENZONATATE 200 MG CAPSULE PO PRN (22:32)
[2023-08-27] MEDS ORDERED: POLYETHYLENE GLYCOL (HEALTHYLAX) 3350 17 GM PACKET PO PRN (22:32)
[2023-08-27] MEDS ORDERED: guaiFENesin 600 MG TABLET.ER (FP) PO PRN (22:32)
[2023-08-27] MEDS ORDERED: hydrOXYzine PAMOATE 25 MG CAPSULE (FP) PO PRN (22:32)
[2023-08-27] MEDS ORDERED: IBUPROFEN 600 MG TABLET (FP) PO PRN (22:32)
[2023-08-27] MEDS ORDERED: BENZOCAINE/MENTHOL (CHLORASEPTIC ) LOZENGE MM PRN (22:32)
[2023-08-27] MEDS ORDERED: DICYCLOMINE HCL 10 MG CAPSULE PO PRN (22:32)
[2023-08-27] MEDS ORDERED: LOPERAMIDE HCL 2 MG CAPSULE PO PRN (22:32)
[2023-08-27] MEDS ORDERED: IBUPROFEN 400 MG TABLET (FP) PO PRN (22:32)
[2023-08-27] MEDS ORDERED: MAG HYDROX/AL HYDROX/SIMETH 30 ML UNIT-DOSE CUP PO PRN (22:32)
[2023-08-27] MEDS ORDERED: NICOTINE POLACRILEX 4 MG GUM BUC PRN (22:32)
[2023-08-27] MEDS ORDERED: METHOCARBAMOL 500 MG TABLET PO PRN (22:32)
[2023-08-27] MEDS ORDERED: ONDANSETRON *ODT* 4 MG TABLET SL PRN (22:32)
[2023-08-27] MEDS ORDERED: BISMUTH SUBSALICYLATE 524 MG/30 ML PO PRN (22:32)
[2023-08-27] MEDS ORDERED: NALOXONE HCL (KLOXXADO) 8 MG SPRAY NS PRN (22:32)
[2023-08-27] MEDS ORDERED: hydrOXYzine PAMOATE 25 MG CAPSULE (FP) PO ONE (22:55)
[2023-08-27] MEDS: hydrOXYzine PAMOATE 25 MG CAPSULE (FP) PO ONE (22:56)
[2023-08-27] MEDS: hydrOXYzine PAMOATE 50 MG CAPSULE (FP) PO ONE (23:18)
[2023-08-27] MEDS ORDERED: ACETAMINOPHEN 325 MG TABLET (FP) ONE (23:42)
[2023-08-27] MEDS: ACETAMINOPHEN 325 MG TABLET (FP) PO PRN (23:47)
[2023-08-28] MEDS: cloNIDine HCL 0.1 MG TABLET PO PRN (07:50)
[2023-08-28 09:58] VITALS: BP 101/59; PULSE 97; RESP 20; TEMP 100.4
[2023-08-28] MEDS: methaDONE HCL 10 MG TABLET (FOR DETOX USE ONLY) PO ONE (10:45)
[2023-08-28] MEDS: NICOTINE 14 MG/24 HOURS TOPICAL PATCH TD SCH (10:46)
[2023-08-28] MEDS: PRENATAL VITAMINS W/ FOLIC ACID TABLET (FP) PO SCH (10:46)
[2023-08-28 11:01] LABS: HEMATOCRIT 34.6 % (35.4-49); HEMOGLOBIN 11.9 GM/dL (11.7-16.9); MCH 31.2 pg (25.7-33.7); MCHC 34.3 g/dl (32.0-35.9); MEAN CELL VOLUME 91.1 fl (80-96); MEAN PLT VOLUME 8.2 fl (7.5-11.1); PLATELET COUNT 192 10^3/uL (134-434); RDW 14.9 % (11.9-15.9); WHITE BLOOD COUNT 11.9 K/mm3 (4.0-10.0)
[2023-08-28 11:14] LABS: CHLORIDE 99 mmol/L (98-107); POTASSIUM 3.3 mmol/L (3.5-5.1); SODIUM 138 mmol/L (136-145)
[2023-08-28 11:18] LABS: BLOOD UREA NITROGEN 11.7 mg/dL (7-18); CALCIUM 8.7 mg/dL (8.5-10.1)
[2023-08-28 11:19] LABS: ALBUMIN 3.2 g/dl (3.4-5.0); ANION GAP 13 mmol/L (4-13); CO2 27 mmol/L (21-32); GLUCOSE,RANDOM 84 mg/dL (74-106)
[2023-08-28 11:22] LABS: CREATININE 1.4 mg/dL (0.55-1.3); SGOT/AST 85 U/L (15-37)
[2023-08-28 11:24] LABS: TOT PROT 6.4 g/dl (6.4-8.2)
[2023-08-28 11:25] LABS: ALK PHOS 62 U/L (45-117)
[2023-08-28 11:32] LABS: SGPT/ALT 44 U/L (13-61)
[2023-08-28] MEDS ORDERED: MELATONIN 5 MG TABLETS PO SCH (22:00)
[2023-08-28] MEDS ORDERED: THIAMINE HCL 100 MG TABLET (FP) PO SCH (22:00)
[2023-08-29] MEDS ORDERED: methaDONE HCL 10 MG TABLET (FOR DETOX USE ONLY) PO ONE (10:00)
[2023-08-30] MEDS ORDERED: methaDONE HCL 10 MG TABLET (FOR DETOX USE ONLY) PO ONE (10:00)
[2023-08-31] MEDS ORDERED: methaDONE HCL 10 MG TABLET (FOR DETOX USE ONLY) PO ONE (05:00)
== END 2023-08-28 23:21 | disposition short-term general hospital (02) | DRG 773 ==
LOC: YASAS 21:23 → Y3N 08-28 00:04
PROVIDERS: ADMIT Allergy & Immunology; ATTEND Surgery
PROC: HZ2ZZZZ Detoxification Services for Substance Abuse Treatment (ICD-10-PCS; principal; 2023-08-28)
DX: F11.23 Opioid dependence with withdrawal (principal); F15.10 Other stimulant abuse, uncomplicated; F17.210 Nicotine dependence, cigarettes, uncomplicated; F19.24 Other psychoactive substance dependence with psychoactive substance-induced mood disorder; R07.9 Chest pain, unspecified; R50.9 Fever, unspecified; Z86.19 Personal history of other infectious and parasitic diseases; Z59.00 Homelessness unspecified
CPT/HCPCS: 0241U-QW; 36415; 80053; 80305; 80307; 85027; 86593; 86780; 87811; 93005; 93010

== ENCOUNTER 2023-08-28 09:46 | Inpatient (IN) | payer OTHER ==
[2023-08-28] MEDS ORDERED: ACETAMINOPHEN INJECTION 100 ML IVPB ONE (11:07)
[2023-08-28] MEDS ORDERED: VANCOMYCIN 1 GRAM (PRE-DOCKED) 1,000 MG/250 ML BAG IVPB ONE (11:08)
[2023-08-28] MEDS ORDERED: PIPERACILLIN/TAZOB 3.375 GM 3.375 GM/50 ML BAG IVPB ONE (11:08)
[2023-08-28] MEDS: SODIUM CHLORIDE 0.9% 500 ML INFUS.BAG IV ONE ×2 (11:28→16:43)
[2023-08-28] MEDS: ACETAMINOPHEN 1000 MG/100 ML BAG IVPB ONE (11:28)
[2023-08-28] MEDS: PIPERACILLIN/TAZOB 3.375 GM 3.375 GM in DEXTROSE 5%-WATER - 50 ML IVPB ONE (11:29)
[2023-08-28 11:47] LABS: VENOUS BASE EXCESS 3.7 mmol/L (-2-2); VENOUS O2 SATURATION 77.9 % (70-80); VENOUS PH 7.424 (7.310-7.410)
[2023-08-28 11:48] LABS: BASO % 0.2 % (0-2.0); EOS % 0.1 % (0-4.5); HEMATOCRIT 35.5 % (35.4-49); HEMOGLOBIN 11.9 GM/dL (11.7-16.9); LYMPH % 9.9 % (8-40); MCH 30.8 pg (25.7-33.7); MCHC 33.7 g/dl (32.0-35.9); MEAN CELL VOLUME 91.6 fl (80-96); MEAN PLT VOLUME 8.5 fl (7.5-11.1); MONO % 3.9 % (3.8-10.2); NEUT % 85.9 % (42.8-82.8); PLATELET COUNT 191 10^3/uL (134-434); RBC 3.88 M/mm3 (4.00-5.60); RDW 15.1 % (11.9-15.9)
[2023-08-28 11:55] LABS: INR 1.6 (0.83-1.09); PROTHROMBIN TIME (PATIENT) 18.5 SEC (9.7-13.0)
[2023-08-28 11:57] LABS: ACTIVATED PTT 24.3 SECONDS (25.2-36.5); POTASSIUM 3.7 mmol/L (3.5-5.1)
[2023-08-28 11:59] LABS: CALCIUM 8.7 mg/dL (8.5-10.1)
[2023-08-28] MEDS: VANCOMYCIN 1,000 MG in DEXTROSE 5%-WATER - 250 ML IVPB ONE (11:59)
[2023-08-28 12:00] LABS: BLOOD UREA NITROGEN 10.6 mg/dL (7-18)
[2023-08-28 12:03] LABS: CREATININE 1.6 mg/dL (0.55-1.3)
[2023-08-28 12:04] LABS: BILIRUBIN,TOTAL 0.9 mg/dL (0.2-1)
[2023-08-28 12:05] LABS: TOT PROT 6.2 g/dl (6.4-8.2)
[2023-08-28 13:00] LABS: ERYTHROCYTE SEDIMENTATION RATE 26 mm/hr (0-10)
[2023-08-28 13:05] LABS: URINE APPEARANCE CLEAR; URINE BILIRUBIN NEGATIVE (NEGATIVE); URINE COLOR YELLOW; URINE GLUCOSE (UA) NEGATIVE (NEGATIVE); URINE KETONE TRACE (NEGATIVE); URINE LEUK ESTERASE NEGATIVE (NEGATIVE); URINE NITRITE NEGATIVE (NEGATIVE); URINE PROTEIN TRACE (NEGATIVE)
[2023-08-28 13:13] LABS: METHADONE, UR NEGATIVE (NEGATIVE); OPIATES, URI NEGATIVE (NEGATIVE); PHENCYCLIDINE,URINE NEGATIVE (NEGATIVE); URINE BARBITURATES NEGATIVE (NEGATIVE)
[2023-08-28 13:14] LABS: COCAINE, UR NEGATIVE (NEGATIVE)
[2023-08-28 13:16] LABS: URINE AMPHETAMINES POSITIVE (NEGATIVE); URINE BENZODIAZEPINES NEGATIVE (NEGATIVE)
[2023-08-28] MEDS ORDERED: BUPRENORPHINE/NALOXONE 2 MG/0.5 MG FILM PACKET ONE (16:37)
[2023-08-28] MEDS: LACTATED RINGERS SOLUTION 1,000 ML/1,000 ML INFUS.BAG IV SCH (16:43)
[2023-08-28] MEDS: BUPRENORPHINE/NALOXONE 2 MG/0.5 MG FILM PACKET SL SCH (16:43)
[2023-08-28] MEDS ORDERED: PIPERACILLIN/TAZOB 2.25 GM 2.25 GM/50 ML BAG IVPB ONE (20:27)
[2023-08-28] MEDS: PIPERACILLIN/TAZOB 2.25 GM 2.25 GM in DEXTROSE 5%-WATER - 50 ML IVPB SCH (20:34)
[2023-08-28 21:58] VITALS: BMI 36.4
[2023-08-29 08:37] LABS: BASO % 0.3 % (0-2.0); EOS % 1.8 % (0-4.5); HEMATOCRIT 34.1 % (35.4-49); HEMOGLOBIN 11.5 GM/dL (11.7-16.9); LYMPH % 12.4 % (8-40); MCH 31.3 pg (25.7-33.7); MCHC 33.8 g/dl (32.0-35.9); MEAN CELL VOLUME 92.5 fl (80-96); MEAN PLT VOLUME 8.7 fl (7.5-11.1); MONO % 6.9 % (3.8-10.2); NEUT % 78.6 % (42.8-82.8); PLATELET COUNT 184 10^3/uL (134-434); RBC 3.69 M/mm3 (4.00-5.60); RDW 14.8 % (11.9-15.9); WHITE BLOOD COUNT 13.1 K/mm3 (4.0-10.0)
[2023-08-29 08:38] LABS: POTASSIUM 3.5 mmol/L (3.5-5.1)
[2023-08-29 08:40] LABS: CALCIUM 8.7 mg/dL (8.5-10.1)
[2023-08-29 08:41] LABS: BLOOD UREA NITROGEN 6.8 mg/dL (7-18)
[2023-08-29 12:47] LABS: HIV INTERPRETATION NEGATIVE (NEGATIVE)
[2023-08-29] MEDS: ENOXAPARIN NA (PORCINE) 40 MG/0.4 ML DISP.SYRIN SQ SCH (14:39)
[2023-08-29] MEDS ORDERED: cloNIDine HCL 0.1 MG TABLET PO PRN (17:04)
[2023-08-29] MEDS ORDERED: NICOTINE 7 MG/24 HOURS TOPICAL PATCH TD PRN (17:10)
[2023-08-29] MEDS: ACETAMINOPHEN 500 MG TABLET (FP) PO PRN (17:51)
[2023-08-29] MEDS: PIPERACILLIN/TAZOB 3.375 GM 3.375 GM in DEXTROSE 5%-WATER - 50 ML IVPB SCH (17:53)
[2023-08-29] MEDS: PIPERACILLIN/TAZOB 2.25 GM 2.25 GM in DEXTROSE 5%-WATER - 50 ML IVPB SCH (19:40)
[2023-08-29] MEDS: methaDONE HCL 10 MG TABLET PO ONE (22:16)
[2023-08-29 22:23] VITALS: RESP 20
[2023-08-30 14:16] VITALS: BP 113/57; PULSE 59; TEMP 98.4
[2023-08-31] MEDS ORDERED: methaDONE HCL 10 MG TABLET PO ONE (10:00)
[2023-09-02] MEDS ORDERED: methaDONE HCL 10 MG TABLET PO ONE (10:00)
== END 2023-08-30 17:24 | disposition left against medical advice (07) | DRG 139 ==
LOC: JER 09:46 → JERBED 12:56 → J7W 21:44
PROVIDERS: ADMIT Internal Medicine; ATTEND Nurse Practitioner
DX: J18.9 Pneumonia, unspecified organism (principal); M62.82 Rhabdomyolysis; N17.9 Acute kidney failure, unspecified; F11.20 Opioid dependence, uncomplicated; F19.10 Other psychoactive substance abuse, uncomplicated; E86.0 Dehydration; K21.9 Gastro-esophageal reflux disease without esophagitis
CPT/HCPCS: 0241U-QW; 36415; 70450-TC; 70486-TC; 71045-TC-FY; 71260-TC; 72125-TC; 80048; 80053; 80307; 81003; 82550; 82553; 82803; 84484; 85025; 85610; 85651; 85730; 86140; 86780; 86850; 86900; 86901; 87040; 87070; 87086; 87205; 87389; 94010; 99285-25; J0131

== ENCOUNTER 2023-12-12 16:16 | Inpatient (IN) | payer OTHER ==
[2023-12-12 17:59] VITALS: BMI 33.4
[2023-12-12] MEDS ORDERED: BENZOCAINE/MENTHOL (CHLORASEPTIC ) LOZENGE MM PRN (20:37)
[2023-12-12] MEDS ORDERED: LOPERAMIDE HCL 2 MG CAPSULE PO PRN (20:37)
[2023-12-12] MEDS ORDERED: BISMUTH SUBSALICYLATE 524 MG/30 ML PO PRN (20:37)
[2023-12-12] MEDS ORDERED: DICYCLOMINE HCL 10 MG CAPSULE PO PRN (20:37)
[2023-12-12] MEDS ORDERED: BENZONATATE 200 MG CAPSULE PO PRN (20:37)
[2023-12-12] MEDS ORDERED: POLYETHYLENE GLYCOL (HEALTHYLAX) 3350 17 GM PACKET PO PRN (20:37)
[2023-12-12] MEDS ORDERED: NALOXONE (NARCAN) HCL 4 MG/0.1 ML SPRAY NS PRN (20:37)
[2023-12-12] MEDS ORDERED: MAGNESIUM HYDROX 2400MG/30ML ORAL SUSPENSION 30 ML CUP PO PRN (20:37)
[2023-12-12] MEDS ORDERED: ONDANSETRON *ODT* 4 MG TABLET SL PRN (20:37)
[2023-12-12] MEDS ORDERED: P-EPHED 60MG/TRIPROLIDI 2.5MG TABLET PO PRN (20:37)
[2023-12-12] MEDS ORDERED: NALOXONE HCL 0.4 MG/ML VIAL IM PRN (20:37)
[2023-12-12] MEDS ORDERED: methaDONE HCL 10 MG TABLET (FOR DETOX USE ONLY) PO ONE (21:00)
[2023-12-12] MEDS: MELATONIN 5 MG TABLETS PO SCH (22:13)
[2023-12-12] MEDS: THIAMINE 100 MG TABLET PO SCH (22:13)
[2023-12-12] MEDS: methaDONE HCL 10 MG TABLET (FOR DETOX USE ONLY) PO ONE (22:15)
[2023-12-13] MEDS: PRENATAL VITAMINS W/ FOLIC ACID TABLET (FP) PO SCH (09:25)
[2023-12-13] MEDS: diazePAM 5 MG TABLET PO PRN (09:28)
[2023-12-13] MEDS: guaiFENesin 600 MG TABLET.ER (FP) PO PRN (09:30)
[2023-12-13] MEDS: NICOTINE POLACRILEX 2 MG GUM BUC PRN (10:54)
[2023-12-13 14:40] LABS: POTASSIUM 4.1 mmol/L (3.5-5.1)
[2023-12-13 14:44] LABS: ALBUMIN 3.8 g/dl (3.4-5.0); BLOOD UREA NITROGEN 9.6 mg/dL (7-18); CALCIUM 9.5 mg/dL (8.5-10.1)
[2023-12-13 14:47] LABS: CREATININE 1.1 mg/dL (0.55-1.3)
[2023-12-13 14:49] LABS: BILIRUBIN,TOTAL 0.3 mg/dL (0.2-1); TOT PROT 7.3 g/dl (6.4-8.2)
[2023-12-13 15:02] LABS: HEMATOCRIT 37.6 % (35.4-49); HEMOGLOBIN 12.9 GM/dL (11.7-16.9); MCH 31.7 pg (25.7-33.7); MCHC 34.4 g/dl (32.0-35.9); MEAN CELL VOLUME 92.2 fl (80-96); MEAN PLT VOLUME 7.7 fl (7.5-11.1); PLATELET COUNT 289 10^3/uL (134-434); RBC 4.07 M/mm3 (4.00-5.60); RDW 15.3 % (11.9-15.9); WHITE BLOOD COUNT 7.3 K/mm3 (4.0-10.0)
[2023-12-13] MEDS: traZODone HCL 50 MG TABLET (FP) PO SCH (23:45)
[2023-12-14] MEDS: methaDONE HCL 10 MG TABLET (FOR DETOX USE ONLY) PO ONE (09:38)
[2023-12-14] MEDS: SERTRALINE HCL 50 MG TABLET (FP) PO SCH (09:38)
[2023-12-14] MEDS: MAG HYDROX/AL HYDROX/SIMETH 30 ML UNIT-DOSE CUP PO PRN (10:55)
[2023-12-14] MEDS: methaDONE HCL 10 MG TABLET PO ONE (12:50)
[2023-12-14] MEDS: ATOMOXETINE HCL 40 MG CAPSULE PO SCH (14:14)
[2023-12-14] MEDS: busPIRone HCL 10 MG TABLET (FP) PO SCH (22:24)
[2023-12-14] MEDS: cloNIDine HCL 0.1 MG TABLET PO PRN (22:25)
[2023-12-14] MEDS: risperiDONE 0.5 MG TABLET PO SCH (22:25)
[2023-12-15] MEDS: methaDONE 40 MG, methaDONE 20 MG PO ONE (09:06)
[2023-12-15] MEDS: IBUPROFEN 400 MG TABLET (FP) PO PRN (17:20)
[2023-12-15] MEDS: NICOTINE POLACRILEX 2 MG LOZENGE BC PRN (17:23)
[2023-12-15] MEDS: METHOCARBAMOL 500 MG TABLET PO PRN (22:29)
[2023-12-16] MEDS ORDERED: cloNIDine HCL 0.1 MG TABLET PO PRN
[2023-12-16] MEDS: methaDONE 40 MG, methaDONE 30 MG PO ONE (09:28)
[2023-12-16] MEDS ORDERED: methaDONE HCL 10 MG TABLET (FOR DETOX USE ONLY) PO ONE (10:00)
[2023-12-16] MEDS: NICOTINE POLACRILEX 4 MG LOZENGE BC PRN (10:34)
[2023-12-17] MEDS: methaDONE HCL 40 MG DISPERSABLE TABLET PO ONE (09:39)
[2023-12-18] MEDS: methaDONE HCL 40 MG DISPERSABLE TABLET PO ONE (10:39)
[2023-12-19] MEDS: BENZOCAINE/MENTHOL (CHLORASEPTIC ) LOZENGE MM ONE (03:01)
[2023-12-19] MEDS: ACETAMINOPHEN 325 MG TABLET (FP) PO PRN (05:39)
[2023-12-19] MEDS: IBUPROFEN 600 MG TABLET (FP) PO PRN (08:39)
[2023-12-19] MEDS: methaDONE HCL 40 MG DISPERSABLE TABLET PO ONE (10:03)
[2023-12-20 06:31] VITALS: RESP 16
[2023-12-20] MEDS: methaDONE HCL 40 MG DISPERSABLE TABLET PO ONE (09:42)
[2023-12-20 13:34] VITALS: BP 112/63; PULSE 78; TEMP 96.9
== END 2023-12-20 13:20 | disposition other institution (70) | DRG 773 ==
LOC: YASAS 16:16 → Y6N 21:37
PROVIDERS: ADMIT Allergy & Immunology; ATTEND Surgery
PROC: HZ2ZZZZ Detoxification Services for Substance Abuse Treatment (ICD-10-PCS; principal; 2023-12-12)
DX: F11.23 Opioid dependence with withdrawal (principal); F10.230 Alcohol dependence with withdrawal, uncomplicated; F15.10 Other stimulant abuse, uncomplicated; F17.210 Nicotine dependence, cigarettes, uncomplicated; F25.1 Schizoaffective disorder, depressive type; F31.9 Bipolar disorder, unspecified; F90.9 Attention-deficit hyperactivity disorder, unspecified type; B18.2 Chronic viral hepatitis C; Z56.0 Unemployment, unspecified; Z59.01 Sheltered homelessness; Z86.19 Personal history of other infectious and parasitic diseases
CPT/HCPCS: 36415; 80053; 80305; 85027; 86593; 86780; 87811; 93005; 93010

== ENCOUNTER 2023-12-20 13:31 | Inpatient (IN) | payer OTHER ==
[2023-12-20] MEDS ORDERED: POLYETHYLENE GLYCOL (HEALTHYLAX) 3350 17 GM PACKET PO PRN (15:45)
[2023-12-20] MEDS ORDERED: IBUPROFEN 400 MG TABLET (FP) PO PRN (15:45)
[2023-12-20] MEDS ORDERED: NALOXONE HCL 0.4 MG/ML VIAL IVPUSH PRN (15:45)
[2023-12-20] MEDS ORDERED: LOPERAMIDE HCL 2 MG CAPSULE PO PRN (15:45)
[2023-12-20] MEDS ORDERED: guaiFENesin 600 MG TABLET.ER (FP) PO PRN (15:45)
[2023-12-20] MEDS ORDERED: MAGNESIUM HYDROX 2400MG/30ML ORAL SUSPENSION 30 ML CUP PO PRN (15:45)
[2023-12-20] MEDS ORDERED: BENZONATATE 200 MG CAPSULE PO PRN (15:45)
[2023-12-20] MEDS ORDERED: ACETAMINOPHEN 325 MG TABLET (FP) PO PRN (15:45)
[2023-12-20] MEDS ORDERED: NALOXONE (NARCAN) HCL 4 MG/0.1 ML SPRAY NS PRN (15:45)
[2023-12-20] MEDS: MELATONIN 5 MG TABLETS PO SCH (21:03)
[2023-12-20] MEDS: busPIRone HCL 10 MG TABLET (FP) PO SCH (21:04)
[2023-12-20] MEDS: THIAMINE 100 MG TABLET PO SCH (21:04)
[2023-12-20] MEDS: traZODone HCL 50 MG TABLET (FP) PO SCH (21:05)
[2023-12-20] MEDS: NICOTINE POLACRILEX 4 MG GUM BUC PRN (21:06)
[2023-12-20] MEDS: BENZOCAINE/MENTHOL (CHLORASEPTIC ) LOZENGE MM PRN (21:06)
[2023-12-21] MEDS: NICOTINE POLACRILEX 4 MG LOZENGE BC PRN (05:56)
[2023-12-21] MEDS: NICOTINE 14 MG/24 HOURS TOPICAL PATCH TD SCH (10:19)
[2023-12-21] MEDS: methaDONE HCL 40 MG DISPERSABLE TABLET PO SCH (10:19)
[2023-12-21] MEDS: PRENATAL VITAMINS W/ FOLIC ACID TABLET (FP) PO SCH (10:20)
[2023-12-21] MEDS: ATOMOXETINE HCL 40 MG CAPSULE PO SCH (10:20)
[2023-12-21] MEDS: SERTRALINE HCL 50 MG TABLET (FP) PO SCH (10:20)
[2023-12-21] MEDS: PNEUMOC 20-VAL CONJ-DIP CRM/PF 0.5 ML SYRINGE IM ONE (12:49)
[2023-12-21 17:28] LABS: HIV INTERPRETATION NEGATIVE (NEGATIVE)
[2023-12-21] MEDS: busPIRone HCL 10 MG TABLET (FP) PO SCH (21:28)
[2023-12-21] MEDS: MELATONIN 5 MG TABLETS PO SCH (21:28)
[2023-12-21] MEDS: hydrOXYzine PAMOATE 25 MG CAPSULE (FP) PO PRN (21:28)
[2023-12-22] MEDS: methaDONE HCL 40 MG DISPERSABLE TABLET PO SCH (12:05)
[2023-12-22] MEDS: ATOMOXETINE HCL 60 MG CAPSULE PO SCH (12:06)
[2023-12-22] MEDS: PRENATAL VITAMINS W/ FOLIC ACID TABLET (FP) PO SCH (12:06)
[2023-12-22] MEDS: SERTRALINE HCL 50 MG TABLET (FP) PO SCH (12:06)
[2023-12-22 12:26] LABS: CHOLESTEROL 168 mg/dL (50-200)
[2023-12-22 12:28] LABS: LDL CHOLESTEROL (ONLY SJRH) 58 mg/dL (5-100)
[2023-12-22 12:32] LABS: HDL CHOLESTEROL 88 mg/dL (40-60)
[2023-12-23] MEDS: ATOMOXETINE HCL 40 MG CAPSULE PO SCH (12:10)
[2023-12-26] MEDS: METHOCARBAMOL 500 MG TABLET PO PRN (15:44)
[2023-12-28] MEDS: IBUPROFEN 600 MG TABLET (FP) PO PRN (10:12)
[2023-12-28] MEDS ORDERED: ATOMOXETINE HCL 60 MG CAPSULE PO SCH (12:00)
[2023-12-28] MEDS: ATOMOXETINE HCL 40 MG CAPSULE PO SCH (12:09)
[2023-12-28] MEDS: MAG HYDROX/AL HYDROX/SIMETH 30 ML UNIT-DOSE CUP PO PRN (13:34)
[2024-01-03 22:09] VITALS: BMI 33.4
[2024-01-17 07:22] VITALS: RESP 16
[2024-01-17 09:16] VITALS: BP 144/74; PULSE 56; TEMP 98
[2024-01-17] MEDS: methaDONE HCL 40 MG DISPERSABLE TABLET PO SCH (09:28)
[2024-01-17] MEDS: busPIRone HCL 10 MG TABLET (FP) PO SCH (09:28)
[2024-01-17] MEDS: ATOMOXETINE HCL 40 MG CAPSULE PO SCH (09:29)
[2024-01-17] MEDS: SERTRALINE HCL 50 MG TABLET (FP) PO SCH (09:29)
[2024-01-17] MEDS: PRENATAL VITAMINS W/ FOLIC ACID TABLET (FP) PO SCH (09:29)
== END 2024-01-17 09:43 | disposition home or self-care (01) | DRG 772 ==
LOC: YASAS 13:31 → Y3W 13:32
PROVIDERS: ADMIT Allergy & Immunology; ATTEND Psychiatry & Neurology Pain Medicine
PROC: HZ42ZZZ Group Counseling for Substance Abuse Treatment, Cognitive-Behavioral (ICD-10-PCS; principal; 2023-12-20)
DX: F10.20 Alcohol dependence, uncomplicated (principal); F17.210 Nicotine dependence, cigarettes, uncomplicated; F90.9 Attention-deficit hyperactivity disorder, unspecified type; F32.A Depression, unspecified; Z56.0 Unemployment, unspecified; Z59.02 Unsheltered homelessness
CPT/HCPCS: 36415; 80061; 83036; 86803; 87389; 87491; 87522; 87591; 87661; 90677; G0009

== ENCOUNTER 2024-08-09 09:51 | Inpatient (IN) | payer OTHER ==
[2024-08-09 10:22] VITALS: BMI 30.4
[2024-08-09] MEDS ORDERED: IBUPROFEN 400 MG TABLET (FP) PO PRN (11:45)
[2024-08-09] MEDS ORDERED: ACETAMINOPHEN 325 MG TABLET (FP) PO PRN (11:45)
[2024-08-09] MEDS ORDERED: DICYCLOMINE HCL 10 MG CAPSULE PO PRN (11:45)
[2024-08-09] MEDS ORDERED: MAG HYDROX/AL HYDROX/SIMETH 30 ML UNIT-DOSE CUP PO PRN (11:45)
[2024-08-09] MEDS ORDERED: guaiFENesin 600 MG TABLET.ER (FP) PO PRN (11:45)
[2024-08-09] MEDS ORDERED: LOPERAMIDE HCL 2 MG CAPSULE PO PRN (11:45)
[2024-08-09] MEDS ORDERED: BENZONATATE 200 MG CAPSULE PO PRN (11:45)
[2024-08-09] MEDS ORDERED: NALOXONE (NARCAN) HCL 4 MG/0.1 ML SPRAY NS PRN (11:45)
[2024-08-09] MEDS ORDERED: MAGNESIUM HYDROX 2400MG/30ML ORAL SUSPENSION 30 ML CUP PO PRN (11:45)
[2024-08-09] MEDS ORDERED: POLYETHYLENE GLYCOL (HEALTHYLAX) 3350 17 GM PACKET PO PRN (11:45)
[2024-08-09] MEDS ORDERED: chlordiazePOXIDE HCL 25 MG CAPSULE PO PRN (11:47)
[2024-08-09] MEDS ORDERED: chlordiazePOXIDE HCL 25 MG CAPSULE ONE (12:09)
[2024-08-09] MEDS: chlordiazePOXIDE HCL 25 MG CAPSULE PO SCH (12:11)
[2024-08-09] MEDS: METHOCARBAMOL 500 MG TABLET PO PRN (17:05)
[2024-08-09] MEDS: MELATONIN 5 MG TABLETS PO SCH (22:19)
[2024-08-09] MEDS: THIAMINE 100 MG TABLET PO SCH (22:19)
[2024-08-09] MEDS: hydrOXYzine PAMOATE 25 MG CAPSULE (FP) PO PRN (22:21)
[2024-08-09] MEDS: IBUPROFEN 600 MG TABLET (FP) PO PRN (22:21)
[2024-08-10] MEDS ORDERED: methaDONE HCL 10 MG TABLET PO SCH (06:00)
[2024-08-10] MEDS: methaDONE 40 MG, methaDONE 10 MG PO SCH (06:00)
[2024-08-10] MEDS: PRENATAL VITAMINS W/ FOLIC ACID TABLET (FP) PO SCH (10:16)
[2024-08-10 12:04] LABS: HEMATOCRIT 37.5 % (35.4-49); HEMOGLOBIN 12.3 GM/dL (11.7-16.9); MCH 30.6 pg (25.7-33.7); MCHC 32.7 g/dl (32.0-35.9); MEAN CELL VOLUME 93.4 fl (80-96); MEAN PLT VOLUME 8.1 fl (7.5-11.1); PLATELET COUNT 265 10^3/uL (134-434); RBC 4.02 M/mm3 (4.00-5.60); RDW 13.6 % (11.9-15.9); WHITE BLOOD COUNT 4.3 K/mm3 (4.0-10.0)
[2024-08-10 12:09] LABS: POTASSIUM 4.1 mmol/L (3.5-5.1)
[2024-08-10 12:11] LABS: CALCIUM 9.5 mg/dL (8.5-10.1)
[2024-08-10 12:12] LABS: ALBUMIN 4.2 g/dl (3.4-5.0); BLOOD UREA NITROGEN 12.3 mg/dL (7-18)
[2024-08-10 12:17] LABS: BILIRUBIN,TOTAL 0.7 mg/dL (0.2-1); TOT PROT 7.8 g/dl (6.4-8.2)
[2024-08-10] MEDS: SERTRALINE HCL 50 MG TABLET (FP) PO SCH (12:45)
[2024-08-10] MEDS: DEXTROAMPHETAMINE/AMPHETAMINE 10 MG CAP.ER.24H PO SCH (12:45)
[2024-08-10] MEDS: NICOTINE POLACRILEX 2 MG GUM BUC PRN (22:16)
[2024-08-11] MEDS: chlordiazePOXIDE HCL 25 MG CAPSULE PO SCH (05:49)
[2024-08-11] MEDS: BENZOCAINE/MENTHOL (CHLORASEPTIC ) LOZENGE MM PRN (13:19)
[2024-08-12] MEDS ORDERED: chlordiazePOXIDE HCL 10 MG CAPSULE PO PRN
[2024-08-12] MEDS: chlordiazePOXIDE HCL 10 MG CAPSULE PO SCH (05:47)
[2024-08-12] MEDS: ONDANSETRON *ODT* 4 MG TABLET SL PRN (10:29)
[2024-08-12] MEDS: NICOTINE POLACRILEX 2 MG LOZENGE BC PRN (14:51)
[2024-08-12] MEDS: CLOTRIMAZOLE 1% CREAM TP SCH (22:13)
[2024-08-12] MEDS: BISMUTH SUBSALICYLATE 524 MG/30 ML PO PRN (22:15)
[2024-08-13] MEDS: chlordiazePOXIDE HCL 10 MG CAPSULE PO SCH (05:19)
[2024-08-13] MEDS: ACAMPROSATE CALCIUM 333 MG TABLET.DR PO SCH (13:22)
[2024-08-14] MEDS: chlordiazePOXIDE HCL 10 MG CAPSULE PO ONE (05:44)
[2024-08-14 06:02] VITALS: RESP 16
[2024-08-14 09:04] VITALS: BP 125/74; PULSE 85; TEMP 97.7
== END 2024-08-14 12:43 | disposition other institution (70) | DRG 773 ==
LOC: YASAS 09:51 → Y6N 12:28
PROVIDERS: ADMIT Allergy & Immunology; ATTEND Allergy & Immunology
PROC: HZ2ZZZZ Detoxification Services for Substance Abuse Treatment (ICD-10-PCS; principal; 2024-08-09)
DX: F10.230 Alcohol dependence with withdrawal, uncomplicated (principal); F11.20 Opioid dependence, uncomplicated; F14.20 Cocaine dependence, uncomplicated; F15.10 Other stimulant abuse, uncomplicated; F17.213 Nicotine dependence, cigarettes, with withdrawal; F19.280 Other psychoactive substance dependence with psychoactive substance-induced anxiety disorder; F19.282 Other psychoactive substance dependence with psychoactive substance-induced sleep disorder; F25.9 Schizoaffective disorder, unspecified; F41.9 Anxiety disorder, unspecified; F32.A Depression, unspecified; F90.9 Attention-deficit hyperactivity disorder, unspecified type; B18.2 Chronic viral hepatitis C; Z20.2 Contact with and (suspected) exposure to infections with a predominantly sexual mode of transmission
CPT/HCPCS: 36415; 80053; 80305; 80307; 85027; 86593; 86780; 87811; 93005; 93010; Q0162